=== PATIENT | female | born 1950 | race Caucasian/White ===

== ENCOUNTER 2016-08-14 20:34 | Emergency (ER) | payer MEDICARE ==
[~2016-08-14] VITALS: Ht 157.5 cm; Wt 50.0 kg
[~2016-08-14 20:34] MED LIST: ADVA500A INH; ALBU0.086 NEB; ALBU0.63 NEB; ALBU6.7H INH; AMIT25TA20 PO; ATOR10TA PO; BACT800T5 PO; CLON1 PO; DICY10 PO; LORT5TAB PO; OS-CTAB3 PO; OXYB5TAB33 PO; PRED10PA PO; PRED20 PO; PROT40TA PO; RANI150 PO; SPIRCAP INH; TAB-TAB PO
[2016-08-14 20:38] VITALS: BP 110/59; PULSE 134; RESP 18; TEMP 98.2; O2SAT 94
== END 2016-08-15 01:30 | disposition left against medical advice (07) ==
LOC: NED 20:34
DX: R06.02 Shortness of breath (principal); Z53.21 Procedure and treatment not carried out due to patient leaving prior to being seen by health care provider
CPT/HCPCS: 99281

== ENCOUNTER 2016-08-17 12:42 | Inpatient (IN) | payer MEDICARE ==
[~2016-08-17] VITALS: Ht 157.5 cm; Wt 50.6 kg
[2016-08-17] VITALS (7 sets, daily range): BP systolic 106–145; BP diastolic 55–86; PULSE 96–117; RESP 17–22; TEMP 97.4–98.6; O2SAT 92–94
[2016-08-17] MEDS ORDERED: CLON1TAB PO (13:12)
[2016-08-17] MEDS ORDERED: AMIT1TAB79 (13:12)
[2016-08-17] MEDS ORDERED: PRED10 PO (13:12)
[2016-08-17] MEDS ORDERED: [UNRECOGNIZED DRUG - CODE] CHEW (13:12)
[2016-08-17] MEDS ORDERED: ATOR10TA15 PO (13:12)
[2016-08-17] MEDS ORDERED: ALBU1.25 NEB (13:12)
[2016-08-17] MEDS ORDERED: ALBUAER3 INH (13:12)
[2016-08-17] MEDS ORDERED: SODIUM CHLOR 0.9% 1000 ML INJ 1,000 ML IV ONE ×2 (13:15→14:15)
[2016-08-17] MEDS ORDERED: methylPREDNISolone SOD SUCC 125 MG/2 ML VIAL IV PUSH ONE (13:15)
[2016-08-17] MEDS ORDERED: SODIUM CHLORIDE 0.9% FLUSH 5 ML FLUSH IVF PRN (13:15)
[2016-08-17] MEDS ORDERED: ZANT150T2 PO (13:19)
[2016-08-17] MEDS ORDERED: HYDR-3533 PO (13:19)
[2016-08-17] MEDS ORDERED: SPIRCAP INH (13:19)
[2016-08-17] MEDS ORDERED: DICY10 PO (13:19)
[2016-08-17] MEDS ORDERED: ADVA500A INH (13:19)
[2016-08-17] MEDS ORDERED: PANT20 PO (13:19)
[2016-08-17] MEDS ORDERED: OXYB5TAB10 PO (13:19)
--- NOTE | 2016-08-17 13:22 | PD ---
HPI Chief Complaint: Dizziness Time Seen by Provider: 13:00 Travel History International Travel<30 days: No Contact w/Intl Traveler<30days: No Traveled to known affect area: No History of Present Illness HPI This is a 66-year-old female who presents to the emergency department with a history of iron deficiency anemia and COPD who presents today with increasing lightheadedness and dizziness over the past several days feeling like she has no energy associated with shortness of breath and the pain in the right chest, worse with deep breaths, improved with rest. She says she's been feeling some chills. She is on chronic prednisone 10 mg per day. She is not on any home oxygen. She thinks she probably requires a blood transfusion and she's been trying to get outpatient labs but hasn't been able to get improved. PFSH Past Medical History Anemia: Yes Arthritis: No Asthma: No Atrial Fibrillation: Yes Autoimmune Disease: No Blood Disorders: No Anxiety: Yes Depression: Yes (SEVERE) Heart Rhythm Problems: No Cancer: No Cardiovascular Problems: Yes (HIGH CHOLESTEROL) High Cholesterol: Yes Chemotherapy: No Chest Pain: No Congestive Heart Failure: No COPD: Yes Cerebrovascular Accident: Yes (TIA) Coronary Artery Disease: Yes Diabetes: No Diminished Hearing: No Endocrine: Yes Gastrointestinal Disorders: Yes GERD: Yes Glaucoma: No Genitourinary: No Headaches: Yes Hepatitis: Yes Hiatal Hernia: No Hypertension: No Immune Disorder: No Implanted Vascular Access Dvce: Yes Kidney Stones: No Musculoskeletal: Yes (BACK AND SHOULDER PAIN) Neurologic: Yes Psychiatric: Yes Reproductive: No Respiratory: Yes Migraines: Yes Myocardial Infarction: No Radiation Therapy: No Renal Failure: No Seizures: No Sickle Cell Disease: No Sleep Apnea: No Thyroid Disease: Yes Ulcer: Yes PNEUMOCCOCAL Vaccine (Year): 2004 ?: Not Menopausal: Yes : 3 Para: 3 Ovarian Cysts: Yes Past Surgical History Abdominal Surgery: Yes (1975--APPENDECTOMY AND DERMOID TUMOR) AICD: No Appendectomy: Yes Arteriovenous Shunt: No Body Medical Devices: PLATE & SCREWS IN LEFT WRIST. Cardiac Surgery: No Cholecystectomy: No Ear Surgery: No Endocrine Surgery: Yes (PARTIAL THYROID 2006) Eye Surgery: No Genitourinary Surgery: No Gynecologic Surgery: Yes (OVARIAN TUMOR REMOVED) Insulin Pump: No Joint Replacement: No Oral Surgery: Yes (EDENTURELESS) Pacemaker: No Thoracic Surgery: No Other Surgery: Yes (PARTIAL THYROIDECTOMY) Social History Alcohol Use: No Tobacco Use: Yes (1PPD) Substance Use: No Allergies-Medications (Allergen,Severity, Reaction): Coded Allergies: Codeine (Verified Allergy, Severe, ITCHING, 08/17/16) Latex (Verified Allergy, Severe, CAUSES HER TO BREAK OUT, 08/17/16) Plavix (Verified Adverse Reaction, Unknown, 08/17/16) Reported Meds & Prescriptions Reported Meds & Active Scripts Active Reported Spiriva Handihaler (Tiotropium Inh) 18 Mcg Cap 18 Mcg INH DAILY 1 capsule = 18 mcg Zantac (Ranitidine HCl) 150 Mg Tab 150 Mg PO BID Protonix (Pantoprazole Sodium) 20 Mg Tab 20 Mg PO BID Ditropan (Oxybutynin Chloride) 5 Mg Tab 5 Mg PO Q12HR Lortab (Hydrocodone-Acetaminophen) 5-325 Mg Tab 1 Tab PO Q4H PRN Advair Diskus Inh (Fluticasone-Salmeterol Inh) 500-50 Mcg/Blist Aer 1 Puff INH BID Rinse mouth after use. Bentyl (Dicyclomine HCl) 10 Mg Cap 10 Mg PO BID Clonazepam 1 Mg Tab 1 Mg PO HS Prednisone 10 Mg Tab 10 Mg PO DAILY Calcium-Folic Acid Plus D (Calcium Carbonate-Folic Acid-Vitamin D3) 1,342-1-300 Mg-Mg-Unit Wafr 1 Tab CHEW BID Atorvastatin (Atorvastatin Calcium) 10 Mg Tab 10 Mg PO HS Elavil (Amitriptyline HCl) 25 Mg Tab Albuterol Neb (Albuterol Sulfate) 1.25 Mg/3 Ml Neb 1.25 Mg NEB Q6HR NEB PRN Proair Hfa 8.5 GM Inh (Albuterol Sulfate) 90 Mcg/Act Aer 2 Puff INH Q4-6H PRN 108 mcg/actuation Review of Systems Except as stated in HPI: all other systems reviewed are Neg Physical Exam Narrative GENERAL: Frail female in no acute distress SKIN: Warm and dry. HEAD: Atraumatic. Normocephalic. EYES: Pupils equal and round. No injection or drainage. Pale sclera. ENT: Moist mucous membranes. Angular cheilosis NECK: Trachea midline. CARDIOVASCULAR: Regular rate and rhythm. No murmur appreciated. RESPIRATORY: Poor air movement bilaterally, crackles in the right lower lung base. Tachypneic. GASTROINTESTINAL: Abdomen soft, non-tender, nondistended. MUSCULOSKELETAL: No obvious deformities. NEUROLOGICAL: Awake and alert. No obvious cranial nerve deficits. Moving all extremities. PSYCHIATRIC: Appropriate mood and affect; insight and judgment normal. Data Data Last Documented VS Vital Signs Date Time Temp Pulse Resp B/P Pulse Ox O2 Delivery O2 Flow Rate FiO2 08/17/16 13:40 17 94 Room Air 08/17/16 12:48 98.0 117 145/86 Orders Complete Blood Count With Diff (08/17/16 13:09) Comprehensive Metabolic Panel (08/17/16 13:09) Act Partial Throm Time (Ptt) (08/17/16 13:09) Prothrombin Time / Inr (Pt) (08/17/16 13:09) Troponin I (08/17/16 13:09) Influenzae A/B Antigen (08/17/16 13:09) Iv Access Insert/Monitor (08/17/16 13:09) Electrocardiogram (08/17/16 13:09) Ecg Monitoring (08/17/16 13:09) Oximetry (08/17/16 13:09) Oxygen Administration (08/17/16 13:09) Chest, Single Ap (08/17/16 13:09) Sodium Chloride 0.9% Flush (Ns Flush) (08/17/16 13:15) Type And Screen (08/17/16 13:09) Methylprednisolone So Succ Inj (Solumedr (08/17/16 13:15) Albuterol-Ipratropium Neb (Duoneb Neb) (08/17/16 13:15) Sodium Chlor 0.9% 1000 Ml Inj (Ns 1000 M (08/17/16 13:15) Blood Culture (08/17/16 14:12) Lactic Acid Sepsis Protocol (08/17/16 14:12) Sodium Chlor 0.9% 1000 Ml Inj (Ns 1000 M (08/17/16 14:15) Ceftriaxone Inj (Rocephin Inj) (08/17/16 14:15) Azithromycin Inj (Zithromax Inj) (08/17/16 14:15) Labs Laboratory Tests Test 08/17/16 13:30 White Blood Count 18.6 TH/MM3 Red Blood Count 5.16 MIL/MM3 Hemoglobin 10.3 GM/DL Hematocrit 33.0 % Mean Corpuscular Volume 63.9 FL Mean Corpuscular Hemoglobin 19.9 PG Mean Corpuscular Hemoglobin 31.1 % Concent Red Cell Distribution Width 19.3 % Platelet Count 290 TH/MM3 Mean Platelet Volume 7.2 FL Neutrophils (%) (Auto) 94.7 % Lymphocytes (%) (Auto) 0.9 % Monocytes (%) (Auto) 3.2 % Eosinophils (%) (Auto) 1.2 % Basophils (%) (Auto) 0.0 % Neutrophils # (Auto) 17.6 TH/MM3 Lymphocytes # (Auto) 0.2 TH/MM3 Monocytes # (Auto) 0.6 TH/MM3 Eosinophils # (Auto) 0.2 TH/MM3 Basophils # (Auto) 0.0 TH/MM3 CBC Comment AUTO DIFF Differential Comment AUTO DIFF CONFIRMED Target Cells 1+ Ovalocytes 1+ Acanthocytes 1+ Keratocytes OCC Prothrombin Time 10.4 SEC Prothromb Time International 0.9 RATIO Ratio Activated Partial 32.2 SEC Thromboplast Time Sodium Level 134 MEQ/L Potassium Level 3.5 MEQ/L Chloride Level 97 MEQ/L Carbon Dioxide Level 27.1 MEQ/L Anion Gap 10 MEQ/L Blood Urea Nitrogen 14 MG/DL Creatinine 0.73 MG/DL Estimat Glomerular Filtration 80 ML/MIN Rate Random Glucose 186 MG/DL Calcium Level 8.4 MG/DL Total Bilirubin 0.4 MG/DL Aspartate Amino Transf 6 U/L (AST/SGOT) Alanine Aminotransferase 16 U/L (ALT/SGPT) Alkaline Phosphatase 96 U/L Troponin I LESS THAN 0.02 NG/ML Total Protein 7.0 GM/DL Albumin 2.5 GM/DL [facility] Medical Decision Making Medical Screen Exam Complete: Yes Emergency Medical Condition: Yes Interpretation(s) Afebrile, tachycardic, hypertensive, hypoxic on room air Leukocytosis of 18 with 94% neutrophils Anemia with hemoglobin of 10 which is baseline Troponin is normal Chest x-ray: Consolidation in the right lower lung consistent with pneumonia Differential Diagnosis Pneumonia, COPD exacerbation, anemia, sepsis Narrative Course This is a 66-year-old female who presents to the emergency department with generalized weakness and increasing shortness of breath. She has a history of COPD and is on prednisone chronically. She was placed on a monitor and an IV was established. She was found to be hypoxic between 90-92% on room air. She has a white count of 18 which may be secondary to chronic prednisone use however on exam she appears quite labored and on x-ray she has evidence of a right lower lobe pneumonia. She was given a dose of IV antibiotics, bronchodilator treatments and methylprednisolone in the emergency room. I think she would benefit from admission for IV antibiotics, bronchodilator treatment and continued pulse steroids. Diagnosis Primary Impression: Pneumonia Qualified Code: J18.1 - Pneumonia of right lower lobe due to infectious organism Admitting Information Admitting Physician Requests: Admit Harika Clemons MD Aug 17, 2016 13:22
[2016-08-17] MEDS: RESP: ALBUTEROL 2.5 MG/IPRATROPIUM 0.5 MG NEB (SCH) INH ×3 (13:30→23:36)
--- NOTE | 2016-08-17 13:31 | RADHPO ---
EXAM DATE/TIME: 08/17/2016 13:19 [facility] COMPARISON: No previous studies available for comparison. INDICATIONS : Cough, congestion, and dizziness. MEDICAL HISTORY : Chronic obstructive pulmonary disease. SURGICAL HISTORY : None. ENCOUNTER: Initial ACUITY: 3 days PAIN SCORE: 3/10 LOCATION: Right lower chest FINDINGS: Portable AP view of the chest demonstrates a normal-sized cardiac silhouette. There is airspace conso lidation in the right lower lung zone. No pleural effusion or pneumothorax is identified. Bones and s oft tissues demonstrate no acute finding. CONCLUSION: Abnormal air space consolidation in the right lower lung zone. Given the history of cough this is camilla racteristic of an infectious process/pneumonia. Stiven Steve MD on August 17, 2016 at 13:28 Board Certified Radiologist. This report was verified electronically.
[2016-08-17 13:38] LABS: AUTOMATED NEUTROPHIL # 17.6 TH/MM3 (1.8-7.7); EOSINOPHIL # 0.2 TH/MM3 (0-0.4); EOSINOPHIL % 1.2 % (0.0-4.0); HEMO FLAGS AUTO DIFF; LYMPH % 0.9 % (9.0-44.0); LYMPHOCYTE # 0.2 TH/MM3 (1.0-4.8); MEAN CELL VOLUME 63.9 FL (80.0-100.0); MEAN CORPUSCULAR HEMOGLOBIN 19.9 PG (27.0-34.0); MEAN CORPUSCULAR HGB CONC 31.1 % (32.0-36.0); MONO % 3.2 % (0.0-8.0); NEUT % 94.7 % (16.0-70.0); PLATELET COUNT 290 TH/MM3 (150-450); RED BLOOD COUNT 5.16 MIL/MM3 (4.00-5.30); RED CELL DISTRIBUTION WIDTH 19.3 % (11.6-17.2); WHITE BLOOD COUNT 18.6 TH/MM3 (4.0-11.0)
[2016-08-17 13:46] LABS: CHLORIDE 97 MEQ/L (98-107); POTASSIUM 3.5 MEQ/L (3.5-5.1); SODIUM (NA) 134 MEQ/L (136-145)
[2016-08-17 13:50] LABS: ANION GAP 10 MEQ/L (5-15); BICARBONATE 27.1 MEQ/L (21.0-32.0); BLOOD UREA NITROGEN 14 MG/DL (7-18)
[2016-08-17 13:53] LABS: ALT (GPT) 16 U/L (10-53); APTT (PATIENT) 32.2 SEC (24.3-30.1); AST (GOT) 6 U/L (15-37); GLOMERULAR FILTRATION RATE 80 ML/MIN (>89); INTERNATIONAL NORMALIZED RATIO 0.9 RATIO; PROTHROMBIN TIME - PATIENT 10.4 SEC (9.8-11.6)
[2016-08-17 13:55] LABS: TOTAL BILIRUBIN ADULT 0.4 MG/DL (0.2-1.0)
[2016-08-17 13:56] LABS: ALKALINE PHOSPHATASE 96 U/L (45-117)
[2016-08-17 14:02] LABS: ACANTHOCYTES 1+ (NORMAL); KERATOCYTES OCC (NORMAL); OVALOCYTES 1+ (NORMAL); SCAN/DIFF AUTO DIFF CONFIRMED; TARGET CELLS 1+ (NORMAL)
[2016-08-17] MEDS ORDERED: AZITHROMYCIN INJ 500 MG in SODIUM CHLOR 0.9% 250 ML INJ 250 ML IV ONE (14:15)
[2016-08-17] MEDS ORDERED: cefTRIAXone INJ 1,000 MG in SODIUM CHLORIDE 0.9% INJ 100 ML IV ONE (14:15)
[2016-08-17] MEDS ORDERED: NICOTINE 21 MG/24 HR PATCH TD SCH (15:00)
[2016-08-17] MEDS ORDERED: ACETAMINOPHEN/HYDROcodone 325 MG/5 MG TAB PO PRN (15:30)
[2016-08-17] MEDS: SODIUM CHLOR 0.9% 1000 ML INJ 1,000 ML IV SCH ×2 (15:41→18:26)
[2016-08-17] MEDS: methylPREDNISolone SOD SUCC 125 MG/2 ML VIAL IVP SCH ×2 (15:41→20:49)
[2016-08-17 15:50] LABS: BLOOD, URINE SMALL (NEG); GLUCOSE,URINE 1000 OR GREATER mg/dL (NEG); KETONE, URINE TRACE mg/dL (NEG); METHOD OF COLLECTION CLEAN CATCH; NITRITE,URINE NEG (NEG); URINE COLOR YELLOW (YELLW/STRAW)
[2016-08-17 15:51] LABS: BACTERIA, URINE FEW /hpf; SQUAMOUS EPITHELIAL CELL URINE > 8 /hpf (0-5)
[2016-08-17 15:52] LABS: COMMENT (UR) CULT NOT INDICATED; CULTURE IF INDICATED CULT NOT INDICATED
--- NOTE | 2016-08-17 17:02 | MH ---
cc: THAIS PACE DATE OF ADMISSION: 08/17/2016 ADMITTING DIAGNOSIS: COPD exacerbation. HISTORY OF PRESENT ILLNESS: Ms. Smith is a 66-year-old female who presented to the emergency room for increased shortness of breath, cough and lightheadedness. She states that she has COPD and on Friday she finished her course of prednisone and doxycycline for COPD exacerbation that she has as part of the [facility] COPD Management Program. She said even though she finished this, she still was not feeling anywhere near improved so she came to the emergency room. Apparently on she also developed some low back pain for which she went to the emergency room at [facility] and states she sat in a chair for three hours after which she left without being seen. Apparently for the last several months she says she has been having these flare-ups of the COPD approximately every two months. She is needing to use the extra Prednisone and antibiotics the doxycycline she is normally on 10 milligrams of Prednisone on a daily basis. She tells me she is not currently on oxygen but has been on oxygen. It would appear that she herself discontinued it as she states that she does not need it. When she is doing well, she is active and she walks the beach without any problem or shortness of breath. She tells me that she has sick contacts at home, notably her daughter. She has had a decreased appetite. Apparently she has been having decreased appetite for the last year and has actually lost weight. She was also concerned because she noticed that her urine was very dark in the last day or so. She denies any chest pain or palpitations. She is a smoker but tells me that she actually has been off cigarettes for 52 days. She has been on Chantix and feels that she has been doing well with that. She has smoked approximately a pack a day for at least 40 years. She denies any fever. She did say that she did feel like she had chills when she came into the emergency room. PAST MEDICAL HISTORY: Her past medical history is significant for: 1. Reflux. 2. Apparently she has had an ulcer in the past. 3. She has had problems with thrush. 4. She does have a history of anemia and has been seeing a carpenter assembler for this. 5. She did have a TIA in the past but apparently is not on aspirin or any medication of this nature because of her gastrointestinal issues. 6. She have a problem with headaches and migraines. 7. Low back pain. 8. She also has a history of depression. PAST SURGICAL HISTORY: Her past surgical history includes: 1. Removal of a dermoid tumor. 2. She has had an ovarian tumor removed. 3. She has had surgery on her left wrist. 4. Prior history of thyroid surgery with partial thyroidectomy. ALLERGIES: 1. CODEINE. 2. LATEX. 3. PLAVIX. MEDICATIONS: Medications that she takes at home include: 1. Prednisone 10 milligrams daily. 2. Elavil 20 milligrams at bedtime. 3. Ditropan 5 milligrams twice a day. 4. Bentyl 10 milligrams twice a day. 5. She uses Spiriva. 6. Clonazepam 1 milligram at bedtime. 7. She has albuterol inhaler as well as nebulizer. 8. She has the Advair Diskus she is on 550. 9. She is on Atorvastatin 10 milligrams daily. 10. Ranitidine. 11. Pantoprazole. 12. She does use hydrocodone for her chronic back pain. 13. She is also on calcium and vitamin D3. HABITS: She does not consume alcohol. She smoked for over 40 years. She is currently on the Chantix and proudly tells me she has been 52 days without smoking. SOCIAL HISTORY: She is on disability. She is . She has a family who lives locally. 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 REVIEW OF SYSTEMS: On review of systems see the history of present illness. She does say she has a very, very dry mouth and She does say she has a very, very dry mouth and has problems with that as well as with thrush. She does say that she does have intermittent heartburn but she denies any kind of chest pain or palpitations. Currently no abdominal pain. No constipation or diarrhea. She does state that she has decreased appetite. She denies any swelling in her legs or difficulty voiding. FAMILY HISTORY: Noncontributory. PHYSICAL EXAMINATION: VITAL SIGNS: Temperature is 98, heart rate is 117, respiratory rate is 20, blood pressure is 145/86, pulse ox is 92% on room air. GENERAL: This is a very pleasant female lying on the emergency room cot. She is not wearing oxygen. She has actually very talkative and speaking in full sentences. HEAD, EYES, EARS, NOSE, THROAT: She is normocephalic and traumatic. Extraocular muscles intact. She does have some __ on the edge of her lips. Saliva is a little bit thick. NECK: Her neck is supple. LUNGS: She does have a diffuse wheeze throughout. HEART: Her heart is little bit tachycardiac but regular. ABDOMEN: Her abdomen has good bowel sounds in all four quadrants. No rebound or guarding. EXTREMITIES: She does have some clubbing of her fingernails. LABORATORY DATA: Her lab work that was done when she came in showed a white count of 18.6, hemoglobin of 10.3, hematocrit of 33, platelet count of 290,000, neutrophils of 94.7. Sodium was 134, potassium was 4.5, BUN was 14, creatinine was 0.7, GFR was 80 with a random glucose of 186, lactic acid was 2. Liver function tests were normal. Troponin was less than 0.02. Total protein was 7 with an albumin of 2.5. PT was 10.4, INR was 9, PTT was 32.2. IMAGING STUDIES: Chest x-ray showed abnormal air space consolidation in the right lower lung zone. This was felt to possibly be an infectious process or pneumonia. ASSESSMENT AND PLAN: 66-year-old female with history of severe COPD presenting to the emergency room with failed outpatient treatment of COPD. At this time she has been admitted. She has been started on IV antibiotics. Will go ahead and give her IV Solu-Medrol, continue breathing treatments around the clock. I actually tried to get ABGs from her but she refused. Give her supplemental oxygen as needed. In terms of her anxiety, will continue her medications. She does have a history of anemia. Her hemoglobin at this point shows no indication that she needs to be transfused. For her chronic pain and low back pain, will continue her pain medications. Continue her atorvastatin for her hyperlipidemia. I will run a urinalysis on her urine since she has complained of the dark urine. I did forget to add that when I did the physical exam she was tender to palpation on the right thorax posteriorly. Further recommendations as the case develops. Thais Pace MD CSL/JCC /3:36 PM /4:34 PM
[2016-08-17] MEDS: BUDESONIDE-FORMOTEROL 160/4.5 MCG INHALER INH SCH (20:47)
[2016-08-17] MEDS: clonazePAM 1 MG TAB PO SCH (20:48)
[2016-08-17] MEDS: FAMOTIDINE 20 MG TAB PO SCH (20:48)
[2016-08-17] MEDS: DICYCLOMINE HCL 10 MG CAP PO SCH (20:48)
[2016-08-17] MEDS: SODIUM CHLORIDE 0.9% FLUSH 5 ML FLUSH IVF SCH (20:48)
[2016-08-17] MEDS: VARENICLINE 1 MG TAB PO SCH (20:49)
[2016-08-17] MEDS: ATORVASTATIN 10 MG TAB PO SCH (20:49)
[2016-08-17] MEDS: PANTOPRAZOLE SOD 20 MG DELAYED RELEASE TAB PO SCH (20:49)
[2016-08-17] MEDS: OXYBUTYNIN CHLORIDE 5 MG TAB PO SCH (20:49)
[2016-08-18] VITALS (7 sets, daily range): BP systolic 111–125; BP diastolic 65–78; PULSE 84–100; RESP 16–20; TEMP 97.1–98.5; O2SAT 93–96
[2016-08-18] MEDS: RESP: ALBUTEROL 2.5 MG/IPRATROPIUM 0.5 MG NEB (SCH) INH ×5 (03:04→19:21)
[2016-08-18] MEDS: methylPREDNISolone SOD SUCC 125 MG/2 ML VIAL IVP SCH ×4 (04:12→20:11)
[2016-08-18] MEDS: SODIUM CHLOR 0.9% 1000 ML INJ 1,000 ML IV SCH (04:12)
[2016-08-18 07:12] LABS: AUTOMATED NEUTROPHIL # 5.5 TH/MM3 (1.8-7.7); BASOPHIL % 0.1 % (0.0-2.0); EOSINOPHIL % 0.2 % (0.0-4.0); HEMATOCRIT 27.2 % (35.0-46.0); LYMPH % 3.7 % (9.0-44.0); LYMPHOCYTE # 0.2 TH/MM3 (1.0-4.8); MEAN CORPUSCULAR HEMOGLOBIN 19.7 PG (27.0-34.0); MEAN CORPUSCULAR HGB CONC 30.3 % (32.0-36.0); MONO % 2.1 % (0.0-8.0); NEUT % 93.9 % (16.0-70.0); PLATELET COUNT 226 TH/MM3 (150-450); RED BLOOD COUNT 4.19 MIL/MM3 (4.00-5.30); RED CELL DISTRIBUTION WIDTH 19.8 % (11.6-17.2); WHITE BLOOD COUNT 5.8 TH/MM3 (4.0-11.0)
[2016-08-18 07:14] LABS: HEMO FLAGS AUTO DIFF
[2016-08-18 07:32] LABS: BICARBONATE 28.8 MEQ/L (21.0-32.0); POTASSIUM 3.2 MEQ/L (3.5-5.1)
[2016-08-18 07:43] LABS: KERATOCYTES 1+ (NORMAL); OVALOCYTES 2+ (NORMAL); SCAN/DIFF AUTO DIFF CONFIRMED; TARGET CELLS 1+ (NORMAL)
[2016-08-18] MEDS: DICYCLOMINE HCL 10 MG CAP PO SCH ×2 (08:01→20:12)
[2016-08-18] MEDS: FAMOTIDINE 20 MG TAB PO SCH ×2 (08:01→20:13)
[2016-08-18] MEDS: OXYBUTYNIN CHLORIDE 5 MG TAB PO SCH ×2 (08:01→20:12)
[2016-08-18] MEDS: PANTOPRAZOLE SOD 20 MG DELAYED RELEASE TAB PO SCH ×2 (08:01→20:12)
[2016-08-18] MEDS: SODIUM CHLORIDE 0.9% FLUSH 5 ML FLUSH IVF SCH ×2 (08:02→20:10)
[2016-08-18] MEDS: BUDESONIDE-FORMOTEROL 160/4.5 MCG INHALER INH SCH ×2 (08:02→20:10)
[2016-08-18] MEDS: VARENICLINE 1 MG TAB PO SCH ×2 (08:49→20:12)
[2016-08-18] MEDS ORDERED: REMOVE OLD PATCH TD SCH (09:00)
[2016-08-18] MEDS ORDERED: ACETAMINOPHEN/HYDROcodone 325 MG/10 MG TAB PO PRN (13:00)
[2016-08-18] MEDS ORDERED: GLUCAGON 1 MG/ML VIAL OTHER PRN (14:00)
[2016-08-18] MEDS ORDERED: ACETAMIN 325 MG/BUTALBITAL 50 MG/CAFFEINE 40 MG TAB PO PRN (14:00)
[2016-08-18] MEDS ORDERED: DEXTROSE 50% IN WATER 50 ML VIAL(D50) IV PUSH PRN (14:00)
--- NOTE | 2016-08-18 14:23 | HHI.PR ---
Subjective Remarks Feels better then yesterday, wants to walk in the [place]. Less cough. Mouth is bothering her, vaginal itching was using monistat before coming to the ER. Did not lry nurse put raisa hose on her. Objective Vitals Vital Signs Date Time Temp Pulse Resp B/P Pulse Ox O2 Delivery O2 Flow Rate FiO2 08/18/16 12:00 97.4 86 19 115/78 96 08/18/16 09:01 20 08/18/16 08:00 97.7 84 17 111/73 95 08/18/16 08:00 93 Nasal Cannula 2.00 08/18/16 07:31 94 Nasal Cannula 2.00 08/18/16 04:00 08/18/16 00:24 97.1 85 20 115/65 96 08/17/16 21:21 98.6 107 22 114/73 93 08/17/16 20:00 93 Nasal Cannula 2.00 08/17/16 19:35 93 Nasal Cannula 2.00 08/17/16 16:30 97.4 96 20 111/70 94 08/17/16 15:32 99 17 109/61 92 Room Air 08/17/16 14:17 102 18 106/55 94 Room Air 08/17/16 08/17/16 08/18/16 15:00 23:00 07:00 Intake Total 307 ml 827 ml Output Total 150 ml Balance 157 ml 827 ml IV Total 307 ml 827 ml Output Urine Total 150 ml # Voids 3 Result Diagram: 08/18/16 0620 08/18/16 0620 Imaging Last Impressions Chest X-Ray 08/17/16 1309 Signed Impressions: Service Date/Time: Wednesday, August 17, 2016 13:19 - CONCLUSION: Abnormal air space consolidation in the right lower lung zone. Given the history of cough this is characteristic of an infectious process/pneumonia. Stiven Steve MD Objective Remarks Lying in bed no acute distress some plaques speaking in full sentences Ronchi rt base, wheezing , left lung clearer +bs non tender No edema A/P Problem List: (1) Pneumonia Status: Acute Plan: currently on rocephin, azithromycin per pt report feeling better, less sputum (2) Steroid-dependent COPD Status: Chronic Plan: on 10 mg prednisone daily, will cont on iv solumedrol for now had glucosuria in her urine and glucose up in labs, check ,hgba1c and ssi for now (3) Anxiety Status: Chronic Plan: cont home medications (4) Anemia Status: Chronic Plan: cont to monitor, has been undergoing evaluation by hematology per patient (5) Chronic back pain Status: Chronic Plan: cont lortab 5, comfortable with this dose (6) Nicotine dependence Status: Chronic Plan: continues on chantix and per report has not smoked in over 50 days (7) Thrush Status: Acute Plan: recurrent problem for her will treat with nystatin and diflucan Problem Qualifiers (1) Pneumonia: Qualified Code: J18.1 - Pneumonia of right lower lobe due to infectious organism Thais Castellanos MD Aug 18, 2016 14:22
[2016-08-18 14:25] LABS: MAGNESIUM 2.1 MG/DL (1.5-2.5)
[2016-08-18] MEDS: cefTRIAXone INJ 1,000 MG in SODIUM CHLORIDE 0.9% INJ 100 ML IV SCH (14:34)
--- NOTE | 2016-08-18 14:36 | EKG ---
Date Performed: 08/17/2016 Time Performed: 13:23:10 PTAGE: 66 years EKG: Sinus rhythm rSr'(V1) - probable normal variant Anterior T wave changes are nonspecific Compared to prior tracing no significant change Borderline ECG PREVIOUS TRACING : 03/03/2011 @ 19.37.06 DOCTOR: Thierry Gaitan Interpretating Date/Time 08/18/2016 14:35:15
[2016-08-18] MEDS ORDERED: PILL SPLITTER OTHER PRN (14:45)
[2016-08-18] MEDS: POTASSIUM CHLORIDE 20 MEQ CONTROLLED RELEASE TAB PO SCH ×2 (14:55→20:12)
[2016-08-18] MEDS: NS + KCL 20 MEQ INJ 1,000 ML IV SCH (14:56)
[2016-08-18] MEDS: INSULIN ASPART SUPPLEMENTAL SCALE SQ SCH ×2 (16:00→20:18)
[2016-08-18] MEDS: FLUCONAZOLE 100 MG TAB PO SCH (16:29)
[2016-08-18] MEDS: NYSTATIN SUSP 500,000 U/5 ML CUP SWISH-SWAL SCH ×2 (16:29→20:12)
[2016-08-18] MEDS: ATORVASTATIN 10 MG TAB PO SCH (20:12)
[2016-08-18] MEDS: clonazePAM 1 MG TAB PO SCH (20:12)
[2016-08-18] MEDS: ACETAMINOPHEN/HYDROcodone 325 MG/5 MG TAB PO PRN (20:21)
[2016-08-18 21:10] LABS: MEAN CORPUSCULAR HGB CONC 29.5 % (32.0-36.0)
[2016-08-18] MEDS: RESP: ALBUTEROL 2.5 MG/3 ML NEB (PRN) INH (22:55)
[2016-08-19] VITALS (7 sets, daily range): BP systolic 112–134; BP diastolic 52–82; PULSE 70–115; RESP 16–20; TEMP 97.2–98.6; O2SAT 91–96
[2016-08-19] MEDS: methylPREDNISolone SOD SUCC 125 MG/2 ML VIAL IVP SCH ×2 (03:19→08:35)
[2016-08-19] MEDS: NS + KCL 20 MEQ INJ 1,000 ML IV SCH (03:19)
[2016-08-19] MEDS: INSULIN ASPART SUPPLEMENTAL SCALE SQ SCH ×4 (05:47→20:10)
[2016-08-19] MEDS: ACETAMINOPHEN/HYDROcodone 325 MG/5 MG TAB PO PRN ×2 (06:21→17:24)
[2016-08-19 06:54] LABS: AUTOMATED NEUTROPHIL # 10.4 TH/MM3 (1.8-7.7); EOSINOPHIL % 0.1 % (0.0-4.0); HEMATOCRIT 27.9 % (35.0-46.0); LYMPH % 3.3 % (9.0-44.0); LYMPHOCYTE # 0.4 TH/MM3 (1.0-4.8); MEAN CELL VOLUME 64.5 FL (80.0-100.0); MONO % 2.9 % (0.0-8.0); NEUT % 93.7 % (16.0-70.0); PLATELET COUNT 261 TH/MM3 (150-450); RED BLOOD COUNT 4.33 MIL/MM3 (4.00-5.30); RED CELL DISTRIBUTION WIDTH 20.2 % (11.6-17.2); WHITE BLOOD COUNT 11.1 TH/MM3 (4.0-11.0)
[2016-08-19 07:16] LABS: ALKALINE PHOSPHATASE 70 U/L (45-117); ALT (GPT) 16 U/L (10-53); ANION GAP 7 MEQ/L (5-15); AST (GOT) 10 U/L (15-37); BICARBONATE 30.5 MEQ/L (21.0-32.0); BLOOD UREA NITROGEN 8 MG/DL (7-18); CHLORIDE 107 MEQ/L (98-107); GLOMERULAR FILTRATION RATE 137 ML/MIN (>89); POTASSIUM 4.2 MEQ/L (3.5-5.1); SODIUM (NA) 144 MEQ/L (136-145); TOTAL BILIRUBIN ADULT 0.2 MG/DL (0.2-1.0)
[2016-08-19 07:29] LABS: HEMO FLAGS AUTO DIFF
[2016-08-19 07:31] LABS: KERATOCYTES 1+ (NORMAL); OVALOCYTES 2+ (NORMAL); TARGET CELLS 1+ (NORMAL)
[2016-08-19 07:32] LABS: SCAN/DIFF AUTO DIFF CONFIRMED
[2016-08-19] MEDS: RESP: ALBUTEROL 2.5 MG/IPRATROPIUM 0.5 MG NEB (SCH) INH ×4 (07:35→19:01)
[2016-08-19] MEDS: POTASSIUM CHLORIDE 20 MEQ CONTROLLED RELEASE TAB PO SCH (08:32)
[2016-08-19] MEDS: BUDESONIDE-FORMOTEROL 160/4.5 MCG INHALER INH SCH ×2 (08:32→20:11)
[2016-08-19] MEDS: DICYCLOMINE HCL 10 MG CAP PO SCH ×2 (08:32→20:10)
[2016-08-19] MEDS: AZITHROMYCIN 250 MG TAB PO SCH (08:33)
[2016-08-19] MEDS: PANTOPRAZOLE SOD 20 MG DELAYED RELEASE TAB PO SCH ×2 (08:33→20:09)
[2016-08-19] MEDS: FAMOTIDINE 20 MG TAB PO SCH ×2 (08:33→20:10)
[2016-08-19] MEDS: VARENICLINE 1 MG TAB PO SCH ×2 (08:33→20:17)
[2016-08-19] MEDS: OXYBUTYNIN CHLORIDE 5 MG TAB PO SCH ×2 (08:33→20:09)
[2016-08-19] MEDS: NYSTATIN SUSP 500,000 U/5 ML CUP SWISH-SWAL SCH ×4 (08:34→20:10)
[2016-08-19] MEDS: SODIUM CHLORIDE 0.9% FLUSH 5 ML FLUSH IVF SCH ×2 (08:35→20:10)
[2016-08-19 08:59] LABS: HEMOGLOBIN A1a 1.6 %; HEMOGLOBIN A1b 2.1 %; HEMOGLOBIN Ao 83.1 %; HEMOGLOBIN LA1C 1.9 %; HEMOGLOBIN P3 4.2 %
--- NOTE | 2016-08-19 11:15 | HHI.PR ---
Subjective Remarks Sob today, walked the [place] yesterday, took of her oxygen on her own. Long story about how she has had iron infusions and transfusions in [place]. Unable to take iron replacement.Saw hematology here but unable to get blood work ordered by Dr Tarango. Pain on rt side resolved, less itch and whitish discharge Objective Vitals Vital Signs Date Time Temp Pulse Resp B/P Pulse Ox O2 Delivery O2 Flow Rate FiO2 08/19/16 09:00 Nasal Cannula 2.00 08/19/16 08:00 97.2 115 18 119/71 91 08/19/16 07:35 94 2.00 08/19/16 00:00 98.6 70 16 112/52 95 08/18/16 21:02 98.5 86 16 119/68 94 08/18/16 20:20 94 Nasal Cannula 2.00 08/18/16 19:20 95 Nasal Cannula 2.00 08/18/16 16:00 98.1 100 17 125/71 93 08/18/16 12:00 97.4 86 19 115/78 96 08/18/16 08/18/16 08/19/16 15:00 23:00 07:00 Intake Total 560 ml 1539 ml 769 ml Balance 560 ml 1539 ml 769 ml Intake Oral 560 ml IV Total 1539 ml 769 ml # Voids 3 1 # Bowel Movements 0 Result Diagram: 08/19/16 0545 08/19/16 0545 Imaging Last Impressions Chest X-Ray 08/17/16 1309 Signed Impressions: Service Date/Time: Wednesday, August 17, 2016 13:19 - CONCLUSION: Abnormal air space consolidation in the right lower lung zone. Given the history of cough this is characteristic of an infectious process/pneumonia. Stiven Steve MD Objective Remarks Lying in bed no acute distress speaking in full sentences Ronchi rt base, lungs otherwise clear +bs non tender No edema, wearing teds A/P Problem List: (1) Pneumonia Status: Acute Plan: currently on rocephin, azithromycin per pt report more sob today very little sputum , will recheck xray (2) Steroid-dependent COPD Status: Chronic Plan: on 10 mg prednisone daily, will cont on iv solumedrol for now had glucosuria in her urine and glucose up in labs, check ,hgba1c and ssi for now, monitor sugars as seroids tapered (3) Anxiety Status: Chronic Plan: cont home medications (4) Anemia Status: Chronic Plan: cont to monitor, has been undergoing evaluation by hematology per patient , however sounds like her blood work was never followed through due to miscommunication , anemia may certainly be contributing to her sob, will ask hematology to see (5) Chronic back pain Status: Chronic Plan: cont lortab 5, comfortable with this dose (6) Nicotine dependence Status: Chronic Plan: continues on chantix and per report has not smoked in over 50 days (7) Thrush Status: Acute Plan: recurrent problem for her will treat with nystatin and diflucan Problem Qualifiers (1) Pneumonia: Qualified Code: J18.1 - Pneumonia of right lower lobe due to infectious organism Thais Castellanos MD Aug 19, 2016 11:15
[2016-08-19] MEDS: methylPREDNISolone SOD SUCC 40 MG/1 ML VIAL IV SCH ×2 (14:16→21:32)
[2016-08-19] MEDS: FLUCONAZOLE 100 MG TAB PO SCH (14:17)
[2016-08-19] MEDS: cefTRIAXone INJ 1,000 MG in SODIUM CHLORIDE 0.9% INJ 100 ML IV SCH (14:18)
--- NOTE | 2016-08-19 14:36 | RADHPO ---
EXAM DATE/TIME: 08/19/2016 12:38 [facility] COMPARISON: CHEST SINGLE AP, August 17, 2016, 13:19. INDICATIONS: Shortness of breath, cough, and generalized weakness. MEDICAL HISTORY: Emphysema. Chronic obstructive pulmonary disease. Anemia. SURGICAL HISTORY: None. ENCOUNTER: Initial ACUITY: 1 week PAIN SCORE: 0/10 LOCATION: Bilateral chest FINDINGS: The study is abnormal. Moderate emphysematous changes are present with patchy air space disease late rally in the right lung. The left lung is clear. Heart and pulmonary vascularity are normal. CONCLUSION: Patchy air space disease in the right lung. Serial films of resolution are suggested. Marcus Baird MD FACR on August 19, 2016 at 14:30 Board Certified Radiologist. This report was verified electronically.
[2016-08-19] MEDS ORDERED: IRON SUCROSE INJ 200 MG in SODIUM CHLORIDE 0.9% INJ 100 ML IV ONE (17:00)
[2016-08-19] MEDS: ATORVASTATIN 10 MG TAB PO SCH (20:09)
[2016-08-19] MEDS: SODIUM CHLORIDE 0.9% FLUSH 5 ML FLUSH IVF PRN (21:32)
[2016-08-19] MEDS: clonazePAM 1 MG TAB PO SCH (21:33)
[2016-08-19] MEDS: RESP: ALBUTEROL 2.5 MG/3 ML NEB (PRN) INH (23:33)
[2016-08-20] VITALS (7 sets, daily range): BP systolic 118–152; BP diastolic 70–92; PULSE 80–93; RESP 18–20; TEMP 95.9–97.8; O2SAT 92–96
[2016-08-20 01:55] LABS: LDH SERUM 236 U/L (84-246)
[2016-08-20 01:56] LABS: FERRITIN 45 NG/ML (8-252); TRANSFERRIN IRON PROFILE 227 MG/DL (200-360)
[2016-08-20] MEDS: methylPREDNISolone SOD SUCC 40 MG/1 ML VIAL IV SCH (05:22)
[2016-08-20] MEDS: SODIUM CHLORIDE 0.9% FLUSH 5 ML FLUSH IVF PRN (05:22)
[2016-08-20] MEDS: RESP: ALBUTEROL 2.5 MG/3 ML NEB (PRN) INH ×2 (05:43→11:36)
[2016-08-20] MEDS: INSULIN ASPART SUPPLEMENTAL SCALE SQ SCH ×4 (05:54→20:00)
[2016-08-20] MEDS: ACETAMINOPHEN/HYDROcodone 325 MG/5 MG TAB PO PRN ×4 (05:54→22:25)
[2016-08-20 06:57] LABS: BASOPHIL % 0.1 % (0.0-2.0); HEMATOCRIT 29.7 % (35.0-46.0); LYMPH % 5.9 % (9.0-44.0); LYMPHOCYTE # 0.7 TH/MM3 (1.0-4.8); MEAN CELL VOLUME 63.7 FL (80.0-100.0); MEAN CORPUSCULAR HEMOGLOBIN 19.4 PG (27.0-34.0); MEAN CORPUSCULAR HGB CONC 30.4 % (32.0-36.0); MONO % 5.7 % (0.0-8.0); NEUT % 88.3 % (16.0-70.0); PLATELET COUNT 326 TH/MM3 (150-450); RED BLOOD COUNT 4.66 MIL/MM3 (4.00-5.30); RED CELL DISTRIBUTION WIDTH 20.4 % (11.6-17.2); WHITE BLOOD COUNT 11.4 TH/MM3 (4.0-11.0)
[2016-08-20 06:58] LABS: HEMO FLAGS AUTO DIFF; POTASSIUM 3.7 MEQ/L (3.5-5.1)
[2016-08-20 07:05] LABS: BICARBONATE 34.2 MEQ/L (21.0-32.0)
[2016-08-20] MEDS: RESP: ALBUTEROL 2.5 MG/IPRATROPIUM 0.5 MG NEB (SCH) INH ×3 (07:30→19:10)
[2016-08-20 07:53] LABS: OVALOCYTES 1+ (NORMAL); SCAN/DIFF AUTO DIFF CONFIRMED
[2016-08-20] MEDS: OXYBUTYNIN CHLORIDE 5 MG TAB PO SCH ×2 (08:26→20:52)
[2016-08-20] MEDS: DICYCLOMINE HCL 10 MG CAP PO SCH ×2 (08:26→20:52)
[2016-08-20] MEDS: AZITHROMYCIN 250 MG TAB PO SCH (08:26)
[2016-08-20] MEDS: BUDESONIDE-FORMOTEROL 160/4.5 MCG INHALER INH SCH ×2 (08:26→20:51)
[2016-08-20] MEDS: VARENICLINE 1 MG TAB PO SCH ×2 (08:26→20:52)
[2016-08-20] MEDS: PANTOPRAZOLE SOD 20 MG DELAYED RELEASE TAB PO SCH ×2 (08:26→20:52)
[2016-08-20] MEDS: FAMOTIDINE 20 MG TAB PO SCH ×2 (08:26→20:52)
[2016-08-20] MEDS: NYSTATIN SUSP 500,000 U/5 ML CUP SWISH-SWAL SCH ×4 (08:27→20:52)
[2016-08-20] MEDS: SODIUM CHLORIDE 0.9% FLUSH 5 ML FLUSH IVF SCH ×2 (08:27→20:51)
[2016-08-20 09:13] LABS: TOTAL PROTEIN SPE 6.6 GM/DL (6.0-7.6)
--- NOTE | 2016-08-20 11:01 | HHI.PR ---
Subjective Remarks low back pain bothering her today, ambulating in [place] with oxygen, was walking 2.6 miles 3 times a week before she got sick, feels stronger today mouth bothering her less Objective Vitals Vital Signs Date Time Temp Pulse Resp B/P Pulse Ox O2 Delivery O2 Flow Rate FiO2 08/20/16 08:00 96.9 91 20 120/79 93 08/20/16 07:30 93 Nasal Cannula 2.00 08/20/16 07:00 Nasal Cannula 2.00 08/20/16 00:00 97.8 88 20 152/92 92 08/19/16 20:00 98.1 99 20 134/82 93 08/19/16 20:00 Nasal Cannula 2.00 08/19/16 19:02 96 Nasal Cannula 2.00 08/19/16 16:00 98.2 90 18 118/70 92 08/19/16 12:00 98.2 90 18 120/70 94 08/19/16 08/19/16 08/20/16 15:00 23:00 07:00 Intake Total 1465 ml 240 ml Output Total 1 ml Balance 1464 ml 240 ml Intake Oral 1320 ml 240 ml IV Total 145 ml 0 ml Stool Total 1 ml # Voids 7 4 # Bowel Movements 1 0 Result Diagram: 08/20/16 0535 08/20/16 0535 Imaging Last Impressions Chest X-Ray 08/19/16 0000 Signed Impressions: Service Date/Time: Friday, August 19, 2016 12:38 - CONCLUSION: Patchy air space disease in the right lung. Serial films of resolution are suggested. Marcus Baird MD FACR Last Impressions Chest X-Ray 08/17/16 1309 Signed Impressions: Service Date/Time: Wednesday, August 17, 2016 13:19 - CONCLUSION: Abnormal air space consolidation in the right lower lung zone. Given the history of cough this is characteristic of an infectious process/pneumonia. Stiven Steve MD Objective Remarks Lying in bed speaking in full sentences wearing oxygen Ronchi rt base, lungs otherwise clear +bs non tender No edema, wearing teds A/P Problem List: (1) Pneumonia Status: Acute Plan: currently on rocephin, azithromycin some sputum , xray still with infiltrate but clinically appears better today (2) Steroid-dependent COPD Status: Chronic Plan: on 10 mg prednisone daily, will cont on iv solumedrol for now had glucosuria in her urine and glucose up in labs, on ssi sugars decreasing as prednisone is tapered (3) Anxiety Status: Chronic Plan: cont home medications, stable (4) Anemia Status: Chronic Plan: cont to monitor, has been undergoing evaluation by hematology per patient , however sounds like her blood work was never followed through due to miscommunication, anemia may certainly be contributing to her sob seen by hematology and labs done, received iv iron infusion (5) Chronic back pain Status: Chronic Plan: cont lortab 5, comfortable with this dose (6) Nicotine dependence Status: Chronic Plan: continues on chantix and per report has not smoked in over 50 days (7) Thrush Status: Acute Plan: recurrent problem for her will treat with nystatin and diflucan Discharge Planning next day or so will likely go home on oxygen Problem Qualifiers (1) Pneumonia: Qualified Code: J18.1 - Pneumonia of right lower lobe due to infectious organism Thais Castellanos MD Aug 20, 2016 11:01
[2016-08-20 12:00] LABS: ALBUMIN SPE 3.52 GM/DL (3.50-5.00); ALPHA 1 GLOBULIN 0.48 GM/DL (0.11-0.29); ALPHA 2 GLOBULIN 1.08 GM/DL (0.22-1.00); BETA GLOBULINS (SPE) 0.83 GM/DL (0.53-1.03)
[2016-08-20] MEDS: cefTRIAXone INJ 1,000 MG in SODIUM CHLORIDE 0.9% INJ 100 ML IV SCH (14:58)
[2016-08-20] MEDS: FLUCONAZOLE 100 MG TAB PO SCH (16:26)
[2016-08-20] MEDS: ATORVASTATIN 10 MG TAB PO SCH (20:52)
[2016-08-20] MEDS: clonazePAM 1 MG TAB PO SCH (20:52)
[2016-08-20] MEDS: predniSONE 20 MG TAB PO SCH (20:52)
[2016-08-20 21:10] LABS: MEAN CORPUSCULAR HGB CONC 29.2 % (32.0-36.0)
[2016-08-21] VITALS: BP 125/72; PULSE 76; RESP 18; TEMP 96.8; O2SAT 98
[2016-08-21 05:38] VITALS: BP 164/77; PULSE 70; RESP 18; O2SAT 100
[2016-08-21] MEDS: RESP: ALBUTEROL 2.5 MG/3 ML NEB (PRN) INH (05:44)
[2016-08-21 06:29] LABS: AUTOMATED NEUTROPHIL # 9.9 TH/MM3 (1.8-7.7); BASOPHIL % 0.1 % (0.0-2.0); EOSINOPHIL % 0.1 % (0.0-4.0); HEMATOCRIT 33.8 % (35.0-46.0); LYMPH % 7.4 % (9.0-44.0); LYMPHOCYTE # 0.8 TH/MM3 (1.0-4.8); MEAN CELL VOLUME 64.8 FL (80.0-100.0); MEAN CORPUSCULAR HEMOGLOBIN 18.9 PG (27.0-34.0); MONO % 4.7 % (0.0-8.0); NEUT % 87.7 % (16.0-70.0); PLATELET COUNT 353 TH/MM3 (150-450); RED BLOOD COUNT 5.21 MIL/MM3 (4.00-5.30); WHITE BLOOD COUNT 11.2 TH/MM3 (4.0-11.0)
[2016-08-21 06:40] LABS: HEMO FLAGS AUTO DIFF
[2016-08-21 06:42] LABS: CHLORIDE 100 MEQ/L (98-107); POTASSIUM 4.4 MEQ/L (3.5-5.1); SODIUM (NA) 141 MEQ/L (136-145)
[2016-08-21 06:49] LABS: ANION GAP 4 MEQ/L (5-15); BICARBONATE 36.9 MEQ/L (21.0-32.0); BLOOD UREA NITROGEN 12 MG/DL (7-18)
[2016-08-21 06:51] LABS: ALT (GPT) 23 U/L (10-53); AST (GOT) 9 U/L (15-37)
[2016-08-21 06:52] LABS: GLOMERULAR FILTRATION RATE 111 ML/MIN (>89)
[2016-08-21 06:53] LABS: TOTAL BILIRUBIN ADULT 0.2 MG/DL (0.2-1.0)
[2016-08-21 06:54] LABS: ALKALINE PHOSPHATASE 76 U/L (45-117)
[2016-08-21] MEDS: INSULIN ASPART SUPPLEMENTAL SCALE SQ SCH ×2 (07:00→11:00)
[2016-08-21] MEDS: RESP: ALBUTEROL 2.5 MG/IPRATROPIUM 0.5 MG NEB (SCH) INH ×2 (07:28→14:11)
[2016-08-21 07:32] LABS: KERATOCYTES OCC (NORMAL); OVALOCYTES 2+ (NORMAL); SCAN/DIFF AUTO DIFF CONFIRMED; TARGET CELLS 1+ (NORMAL)
--- NOTE | 2016-08-21 07:43 | MB ---
cc: KAMERON GLOVER MD,JIE ROBLES M.D. HEMATOLOGY/ONCOLOGY CONSULTATION NOTE DATE OF CONSULTATION 08/19/2016 DATE OF 1950 [address] Jie Parkinson REASON FOR CONSULTATION Progressive microcytic anemia. CHIEF COMPLAINT Ms. Smith reports having symptoms of progressive difficulty breathing, cough, dizziness and fatigue, as well as a right-sided flank pain. HISTORY OF PRESENT ILLNESS Ms. Smith is a 66-year-old female who presented to [facility] in [place] on 08/17/2016 complaining of difficulty breathing, cough and dizziness. Imaging studies of the chest at the time of presentation revealed airspace consolidation in the right lower lung zone. Findings were concerning for an infectious process. She was assessed to have a COPD exacerbation/pneumonia and has been admitted to the hospital for intravenous corticosteroids and intravenous antibiotics. Over the course of the hospitalization, she became increasingly anemic with her hemoglobin levels dropping from 10.3 gm/dl at presentation down to 8.2 gm/dl as of today. Her MCV is low at 64, hematocrit is also low at below 30%. She has slightly elevated WBC count associated with mostly a neutrophilia. Platelet counts are normal. Peripheral smear was reviewed and findings were indicative of possible iron deficiency with ovalocytes, microcytosis, and isocytosis and increased pallor/hypochromasia. The oncology service has been consulted for further workup and evaluation of her microcytic anemia. In late July of 2016, the patient was seen as an outpatient by my associate Dr. Tarango who had recommended an outpatient anemia workup. The patient had not been able to pursue this. The anemia workup included serum iron studies, hemolytic work up, stool for occult blood testing, as well as serum protein electrophoresis amongst other testing. Per Ms. Smith, she has been struggling with anemia going back at least 10 years. She tells me she has required intermittent iron infusions for management of severe anemia. In fact in March of 2016, she underwent an EGD and colonoscopy performed at [facility]. She was found to have no evidence of active bleeding, but did report findings of multiple colonic polyps. Based on those findings, she was recommended repeat colonoscopy in July of 2016, the patient has not scheduled this study yet. Also in 2013, she was found to be severely anemic and underwent an EGD while she was still living in [place] and that EGD did reveal ulcers per the patient's verbal report. PAST MEDICAL HISTORY 1. COPD 2. Extensive personal history of tobaccoism 3. Anxiety and depression 4. Microcytic anemia 5. Reported history of transient ischemic attacks. 6. Eczema and psoriasis PAST SURGICAL HISTORY 1. Partial thyroidectomy 2. Left wrist ORIF 3. Multiple EGD's and colonoscopies. 4. Dermoid cyst removal from the pelvic area. 5. Surgical removal of multiple ovarian cysts 6. Appendectomy FAMILY HISTORY Father of complications of mesothelioma. Mom of complications of emphysema. SOCIAL HISTORY The patient is . She lives at home with her daughter and grandson. She is originally from [place], [place]. 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 She reports smoking most of her life, but quit about two months ago. ALLERGIES CODEINE WHICH CAUSES ITCHING, LATEX WHICH CAUSES ITCHING. SHE ALSO REPORTS AN ALLERGY TO PLAVIX WHICH CAUSES NOSEBLEEDS. . CURRENT INPATIENT MEDICATIONS 1. Ceftriaxone one gram IV q24h 2. Fioricet one tablet q6h as needed for headaches 3. Tylenol/Hydrocodone 325/5 mg p.o. q4h as needed for pain. 4. Albuterol nebulizers q4h 5. Atorvastatin 10 mg p.o. q.h.s. 6. Azithromycin 250 mg p.o. daily 7. Symbicort 2 puffs q12 hours 8. Klonopin 1 mg p.o. q.h.s. 9. Bentyl 10 mg p.o. b.i.d. 10. Famotidine 20 mg p.o. b.i.d. 11. Fluconazole 150 mg p.o. daily 12. Low-dose insulin sliding scale as per protocol 13. Methylprednisolone 40 mg IV q8h 14. Nystatin swish and swallow 5 mL p.o. four times daily 15. Oxybutynin 5 mg p.o. q12h 16. Pantoprazole 20 mcg p.o. b.i.d. 17. Chantix 1 mg p.o. q12h REVIEW OF SYSTEMS CONSTITUTIONAL: The patient reports fatigue, decreased appetite, dizziness. HEENT: Denies headaches, blurred vision, difficulty swallowing or soreness in the throat. RESPIRATORY: Reports difficulty breathing, denies cough or hemoptysis. CARDIOVASCULAR: Denies angina-like chest pain, PND, orthopnea. She does report palpitations. She denies lower extremity swelling. GI: Denies nausea, vomiting, diarrhea, hematochezia, or melena. : Denies dysuria, hematuria, or urinary incontinence. MUSCULOSKELETAL: Reports right-sided flank pain which is now improved. ARTS MANAGER: No focal sensory or motor deficits. SKIN: She reports having eczema and psoriasis PHYSICAL EXAMINATION VITAL SIGNS: Temperature 98.2 degrees Fahrenheit, heart rate 90 beats a minute, respiratory rate 18, blood pressure 120/70, O2 sat 94% on two liters nasal cannula. GENERAL PHYSICAL APPEARANCE: Ms. Smith is a middle-aged female, she is sitting up in bed, she appears to be in no acute distress but seems to have a jittery and anxious personality. HEENT: Head is atraumatic and normocephalic, conjunctive are pale. Sclerae are anicteric, EOMI, PERRLA, oral exam no pharyngeal erythema. NECK: No palpable cervical r supraclavicular lymphadenopathy. RESPIRATORY: Decreased bibasilar breath sounds, prolonged expiratory phase. She has scattered crepitus and scattered rhonchi. CARDIOVASCULAR: Regular rate and rhythm, S1-S2. No obvious murmurs, rubs or gallops. ABDOMEN: Protuberant belly, soft and nontender, nondistended. No palpable organ enlargement. EXTREMITIES: Lower extremities have no pretibial edema or calf tenderness. MUSCULOSKELETAL: Generally decreased muscle mass, tone and strength. LABORATORY FINDINGS Blood work dated 08/19/2016: WBC count 11.1, hemoglobin 8.2 gm/dl, hematocrit 27.9%, MCV 64.5, platelet count 261, absolute neutrophil count 10.4. Review of peripheral blood smear dated 08/19/2016: RBC lineage: Significant anisocytosis with hypochromasia. Clumping of the RBCs is noted. White blood cell lineage: Mature circulating neutrophils and lymphocytes appreciated. No dysplastic or dysmorphic findings appreciated. The nuclei of the neutrophils are not hypersegmented or poorly granulated. Platelets appear to be an adequate number and morphology. Chemistries: Sodium 144, potassium 4.2, chloride 107, bicarbonate 30.5, BUN 8, creatinine 0.46, EGFR 137, random glucose 128, HbA1c 6.4, calcium 8.1, total bilirubin 0.2, AST 10, ALT 16, alkaline phosphatase 70, albumin 2.2. IMAGING STUDIES Chest x-ray dated 08/19/2016: Right lower lobe consolidative changes without evidence of discrete mass. ASSESSMENT Ms. Smith is a 66-year-old female with what appears to be a longstanding history of microcytic anemia. She tells me in the past she has been found to have bleeding upper GI ulcers which have been cauterized. She tells the most recent episode was in 2013 while she was living in [place]. Most recently, she has been noted to have a declining hemoglobin and hematocrit. She is severely microcytic. The oncology service has been consulted to evaluate her microcytic anemia. She is presently in the hospital for management of what appears to be a COPD exacerbation with pneumonia. RECOMMENDATIONS 1. Severe microcytic anemia: I will initiate an anemia workup with serum iron studies including TIBC, serum iron level, percent iron saturation, ferritin level, as well as evaluation for mineral vitamin deficiency including folic acid and vitamin B12. Serum protein electrophoresis will also be ordered. Stool for occult blood testing will be ordered. Additionally, an LDH and haptoglobin level will be Ordered. 2. Empirically I will initiate the patient on folic acid, vitamin B12 as well as intravenous iron as she has difficulty tolerating oral iron. I will request outpatient followup with Dr. Tarango to further evaluate and manage her microcytic anemia. MD MAGDALENA Myles/ARNULFO /4:42 PM /7:21 AM
[2016-08-21 08:00] VITALS: BP 115/72; PULSE 84; RESP 18; TEMP 97.2; O2SAT 94
[2016-08-21] MEDS: BUDESONIDE-FORMOTEROL 160/4.5 MCG INHALER INH SCH (08:01)
[2016-08-21] MEDS: SODIUM CHLORIDE 0.9% FLUSH 5 ML FLUSH IVF SCH (08:01)
[2016-08-21] MEDS: OXYBUTYNIN CHLORIDE 5 MG TAB PO SCH (08:01)
[2016-08-21] MEDS: DICYCLOMINE HCL 10 MG CAP PO SCH (08:02)
[2016-08-21] MEDS: AZITHROMYCIN 250 MG TAB PO SCH (08:02)
[2016-08-21] MEDS: FAMOTIDINE 20 MG TAB PO SCH (08:02)
[2016-08-21] MEDS: VARENICLINE 1 MG TAB PO SCH (08:02)
[2016-08-21] MEDS: predniSONE 20 MG TAB PO SCH (08:02)
[2016-08-21] MEDS: PANTOPRAZOLE SOD 20 MG DELAYED RELEASE TAB PO SCH (08:02)
[2016-08-21] MEDS: NYSTATIN SUSP 500,000 U/5 ML CUP SWISH-SWAL SCH ×2 (08:03→13:48)
[2016-08-21] MEDS: ACETAMINOPHEN/HYDROcodone 325 MG/5 MG TAB PO PRN ×2 (08:03→13:49)
[2016-08-21 12:00] VITALS: BP 106/64; PULSE 81; RESP 18; TEMP 97.4; O2SAT 93
[2016-08-21] MEDS: cefTRIAXone INJ 1,000 MG in SODIUM CHLORIDE 0.9% INJ 100 ML IV SCH (13:49)
--- NOTE | 2016-08-21 13:53 | HHI.PR ---
Subjective Remarks Feeling better. More energy, ready to go home. Passes walk test. Objective Vitals Vital Signs Date Time Temp Pulse Resp B/P Pulse Ox O2 Delivery O2 Flow Rate FiO2 08/21/16 12:00 97.4 81 18 106/64 93 08/21/16 08:01 98 Nasal Cannula 2.00 08/21/16 08:00 97.2 84 18 115/72 94 08/21/16 00:00 96.8 76 18 125/72 98 08/20/16 23:36 20 08/20/16 20:00 95.9 80 18 136/83 96 08/20/16 19:13 Nasal Cannula 2.00 08/20/16 19:12 93 Nasal Cannula 2.00 08/20/16 16:00 97.3 93 18 118/70 94 08/20/16 08/20/16 08/21/16 15:00 23:00 07:00 Intake Total 340 ml Balance 340 ml Intake Oral 240 ml IV Total 100 ml # Voids 2 3 # Bowel Movements 0 Result Diagram: 08/21/16 0540 08/21/16 0540 Imaging Last Impressions Chest X-Ray 08/19/16 0000 Signed Impressions: Service Date/Time: Friday, August 19, 2016 12:38 - CONCLUSION: Patchy air space disease in the right lung. Serial films of resolution are suggested. Marcus Baird MD FACR Last Impressions Chest X-Ray 08/17/16 1309 Signed Impressions: Service Date/Time: Wednesday, August 17, 2016 13:19 - CONCLUSION: Abnormal air space consolidation in the right lower lung zone. Given the history of cough this is characteristic of an infectious process/pneumonia. Stiven Steve MD Objective Remarks walking in room odd oxygen speaking in full sentences rt base les ronchi, lungs otherwise clear ext No edema, A/P Problem List: (1) Pneumonia Status: Acute Plan: currently on rocephin, azithromycin will change to po medications f/u xray as outpatient (2) Steroid-dependent COPD Status: Chronic Plan: on 10 mg prednisone daily, will discharge initially on 20 mg bid taper as outpatient (3) Anxiety Status: Chronic Plan: cont home medications (4) Anemia Status: Chronic Plan: cont to monitor, has been undergoing evaluation by hematology per patient , however sounds like her blood work was never followed through due to miscommunication , anemia may certainly be contributing to her sob, seen by hematology and recieved iron infusion, will f/u with Dr Tarango as outpatient. (5) Chronic back pain Status: Chronic Plan: cont lortab 5, comfortable with this dose (6) Nicotine dependence Status: Chronic Plan: continues on chantix and per report has not smoked in over 50 days (7) Thrush Status: Resolved Plan: recurrent problem for her treated with nystatin and diflucan Discharge Planning discharge today Problem Qualifiers (1) Pneumonia: Qualified Code: J18.1 - Pneumonia of right lower lobe due to infectious organism Thais Castellanos MD Aug 21, 2016 13:53
[2016-08-21] MEDS ORDERED: VARE1 PO (14:14)
[2016-08-21] MEDS ORDERED: PRED20 PO (14:14)
[2016-08-21] MEDS ORDERED: ZITH250T PO (14:14)
[2016-08-21] MEDS ORDERED: BUTATAB6 PO (14:14)
[2016-08-21] MEDS ORDERED: CEFD300C PO (14:14)
[2016-08-21] MEDS ORDERED: NYST1000 SWISH-SWAL (14:14)
--- NOTE | 2016-10-10 20:36 | HHI.DS ---
Discharge Summary Admission Date Aug 17, 2016 at 14:38 Discharge Date: Aug 21, 2016 Admitting Diagnosis pneumonia (1) Pneumonia Diagnosis: Principal (2) Steroid-dependent COPD Diagnosis: Secondary (3) Anxiety Diagnosis: Secondary (4) Anemia Diagnosis: Secondary (5) Chronic back pain Diagnosis: Secondary (6) Nicotine dependence Diagnosis: Secondary (7) Thrush Diagnosis: Secondary Consultants Dr. Martinez for Hematology Brief History Patient presented to [facility] for increased cough, sob and lightheadedness. Had completed course of antibiotics and prednisone as part of [facility] copd program. Chest xray showed RLL pneumonia. She was placed on antibiotics and steroids as well as oxygen and admitted. Imaging Last Impressions Chest X-Ray 08/19/16 0000 Signed Impressions: Service Date/Time: Friday, August 19, 2016 12:38 - CONCLUSION: Patchy air space disease in the right lung. Serial films of resolution are suggested. Marcus Baird MD FACR PE at Discharge walking in room odd oxygen speaking in full sentences [facility], lungs otherwise clear ext No edema, Hospital Course Patient tolerated antibiotics but developed thrush and yeast infection treated with diflucan. She was weaned off IV steroids. And at discharge was less sob and not requiring oxygen. She was anemic on presentation with partial w/u of her anemia. Since this may have contributed to her sob Hematology was asked to see her. She was seen by Dr Martinez who ordered bloodwork to be followed as outpatient. She also recieved iron infusion. Pt Condition on Discharge: Stable Discharge Disposition: Discharge Home Discharge Instructions DIET: Follow Instructions for: As Tolerated, No Restrictions Activities you can perform: Regular-No Restrictions New Medications: Cefdinir (Cefdinir) 300 Mg Cap 300 MG PO BID Infection #14 Ref 0 CAP Azithromycin (Zithromax) 250 Mg Tab 250 MG PO DAILY pneumonia #2 TAB Fqphjgiquj-Usujwzzhwbgzy-Ghfibhyk (Rcapqtekpp-Xxvhrnpgjcezi-Fzjuisiu) 50-325-40 Mg Tab 1 TAB PO Q6H PRN headache #30 TAB Nystatin Liq (Nystatin Liq) 100,000 unit/ml Susp 5 ML SWISH-SWAL QID thrush #120 ML Prednisone (Prednisone) 20 Mg Tab 20 MG PO BID copd #14 TAB Varenicline (Chantix) 1 Mg Tab 1 MG PO Q12HR nicotine dependence #60 TAB Continued Medications: Albuterol 8.5 GM Inh (Proair Hfa 8.5 GM Inh) 90 Mcg/Act Aer 2 PUFF INH Q4-6H 108 mcg/actuation PRN SHORTNESS OF BREATH #1 Ref 0 INHALER Albuterol Neb (Albuterol Neb) 1.25 Mg/3 Ml Neb 1.25 MG NEB Q6HR NEB PRN SHORTNESS OF BREATH #50 Ref 0 NEBULE Amitriptyline HCl (Elavil) 25 Mg Tab Atorvastatin (Atorvastatin) 10 Mg Tab 10 MG PO HS Cholesterol Management #30 Ref 0 TAB Calcium Carbonate-Folic Acid-Vitamin D3 (Calcium-Folic Acid Plus D) 1,342-1-300 Mg-Mg-Unit Wafr 1 TAB CHEW BID TAB Clonazepam (Clonazepam) 1 Mg Tab 1 MG PO HS #60 Ref 0 TAB Dicyclomine (Bentyl) 10 Mg Cap 10 MG PO BID Bowel Management Ref 0 CAP Fluticasone-Salmeterol Inh (Advair Diskus Inh) 500-50 Mcg/Blist Aer 1 PUFF INH BID Rinse mouth after use. #1 Ref 0 INHALER Hydrocodone-Acetaminophen (Lortab) 5-325 Mg Tab 1 TAB PO Q4H PRN PAIN Ref 0 TAB Oxybutynin (Ditropan) 5 Mg Tab 5 MG PO Q12HR Urinary Symptom Managemen #60 Ref 0 TAB Pantoprazole (Protonix) 20 Mg Tab 20 MG PO BID Reflux #30 Ref 0 TAB Ranitidine (Zantac) 150 Mg Tab 150 MG PO BID Reduce Stomach Acid #60 Ref 0 TAB Tiotropium Inh (Spiriva Handihaler) 18 Mcg Cap 18 MCG INH DAILY 1 capsule = 18 mcg COPD #30 Ref 0 CAP Discontinued Medications: Prednisone (Prednisone) 10 Mg Tab 10 MG PO DAILY Ref 0 TAB Thais Castellanos MD Oct 10, 2016 20:36
== END 2016-08-21 17:53 | disposition home or self-care (01) | DRG 190 ==
LOC: PHED 12:42 → HPAC 14:38 → NEDA 15:03 → PHEDA 15:38 → PH3A 16:19
PROVIDERS: ADMIT Legal Medicine; ATTEND Legal Medicine
DX: J44.0 Chronic obstructive pulmonary disease with (acute) lower respiratory infection (principal); J18.9 Pneumonia, unspecified organism; J44.1 Chronic obstructive pulmonary disease with (acute) exacerbation; Z79.52 Long term (current) use of systemic steroids; Z87.891 Personal history of nicotine dependence; D50.9 Iron deficiency anemia, unspecified; B37.9 Candidiasis, unspecified; I25.10 Atherosclerotic heart disease of native coronary artery without angina pectoris; E78.5 Hyperlipidemia, unspecified; F41.9 Anxiety disorder, unspecified; M54.5 Low back pain; G89.29 Other chronic pain; Z86.010 Personal history of colon polyps; Z86.73 Personal history of transient ischemic attack (TIA), and cerebral infarction without residual deficits
CPT/HCPCS: 71010; 71020; 80048; 80053; 81001; 82272; 82607; 82728; 82746; 82948; 83010; 83036; 83540; 83550; 83605; 83615; 83735; 84165; 84484; 85025; 85610; 85730; 86850; 86900; 86901; 87040; 87804; 93005; 94620; 94640; 94664; 96361; 96374; J0456; J0696; J1756; J1815; J2920; J2930; J3480; J7030; J7050; J7512; J7613

== ENCOUNTER → 2016-12-24 | Outpatient (CLI) | payer MEDICARE ==
[~2016-12-24] MED LIST changes: -ALBU0.086 NEB; -ALBU0.63 NEB; +ALBU1.25 NEB; -ALBU6.7H INH; +ALBUAER3 INH; +AMIT1TAB79; -AMIT25TA20 PO; -ATOR10TA PO; +ATOR10TA15 PO; -BACT800T5 PO; +BUTATAB6 PO; +CEFD300C PO; -CLON1 PO; +CLON1TAB PO; +HYDR-3533 PO; -LORT5TAB PO; +NYST1000 SWISH-SWAL; -OS-CTAB3 PO; +OXYB5TAB10 PO; -OXYB5TAB33 PO; +PANT20 PO; -PRED10PA PO; -PROT40TA PO; -RANI150 PO; -TAB-TAB PO; +VARE1 PO; +ZANT150T2 PO; +ZITH250T PO; +[UNRECOGNIZED DRUG - CODE] CHEW
--- NOTE | 2016-12-27 09:57 | RSPPFT ---
DATE OF PROCEDURE: 12/24/16 COMMENTS: Spirometry shows FVC of 2.1 at 80% of predicted, FEV1 of 1.0 at 46%, FEV1/FVC ratio is decreased. Flow is decreased at FEF 25, FEF 50, FEF 75 and FEF 25-75. There is a mild response after bronchodilator treatment. Lung volumes show residual volume is increased. TLC is increased. Diffusion capacity is decreased. Flow volume loop indicates an obstructive pattern. IMPRESSION: 1. Moderately severe obstructive lung disease. 2. Mild response after bronchodilator treatment. 3. Lung volumes show hyperinflation and air trapping. 4. Severe loss in diffusion capacity.
== END ==
LOC: HRSP 08:45
PROVIDERS: ATTEND Specialist
DX: J44.9 Chronic obstructive pulmonary disease, unspecified (principal)
CPT/HCPCS: 94060; 94726; 94729

== ENCOUNTER → 2017-05-15 | Outpatient (CLI) | payer MEDICARE ==
[~2017-05-15] VITALS: Ht 157.5 cm; Wt 53.3 kg
[~2017-05-15] MED LIST changes: +AMIT25TA9 PO; +CHLORHEXIDINE GLUCONATE 2 % 1 PACK (2 CLOTHS) TOPICAL PRN; +HYDR-3516 PO; +LACTATED RINGER'S 1000 ML IV PRN; +LIDOCAINE HCL 1% PF 5 ML SYRINGE OTHER ONE; +METOPROLOL TARTRATE 25 MG TAB PO PRN; -OXYB5TAB10 PO; +OXYB5TAB8 PO; +POVIDONE IODINE 5% (ANTISEPSIS KIT) 4 APPLICATIONS EACH NARE PRN; +PROPOFOL 200 MG/20 ML AMP IV ONE; +SODIUM CHLORID 0.9% 500 ML IV PRN
--- NOTE | 2017-05-15 16:43 | GIPROC ---
[facility] [address] [facility]. [facility], [address] EGD WITH DILATION PROCEDURE REPORT EXAM DATE: 05/15/2017 PATIENT NAME: Esteafni Smith MR#: [id number] BIRTHDATE: 1950 ATTENDING: Angela Baker MD ORDER #: [id number] HOME SERVICE CONSULTANT: Sepideh Angulo and Rocky Bermeo STATUS: outpatient INDICATIONS: The patient is a 66 yr old female here for an EGD with dilation due to anemia, dysphagia, reflux PROCEDURE PERFORMED: EGD w/ biopsy EGD w/ dilation of esophagus via guidewire MEDICATIONS: None and Per Anesthesia. TOPICAL ANESTHETIC: none CONSENT: The patient understands the risks and benefits of the procedure and understands that these risks include, but are not limited to: sedation, allergic reaction, infection, perforation and/or bleeding. Alternative means of evaluation and treatment include, among others: physical exam, x-rays, and/or surgical intervention. The patient elects to proceed with this endoscopic procedure. medical equipment was checked for proper function. Hand hygiene and appropriate measures for infection prevention was taken. After the risks, benefits and alternatives of the procedure were thoroughly explained, Informed consent was verified, confirmed and timeout was successfully executed by the treatment team. The patient was anesthetized with topical anesthesia and the EC-[id number] (Pedi C) endoscope was introduced through the mouth and advanced to the second portion of the duodenum. The instrument was slowly withdrawn as the mucosa was fully examined. Duodenum normal-biopsy to r/o celiac disease gastritis antrum-biopsy esophagitis distal esophagus-biopsy spasm distal esophagus -s/p dilatation using Savary dilator 16. Dilation was performed at gastroesophageal junction. DILATOR: SIZE(S): RESISTANCE: HEME: APPEARANCE: Dilator: Savary over guidewire Size(s): 16 COMMENT: Retroflexed views revealed a hiatal hernia ADVERSE EVENTS: There were no complications. IMPRESSIONS: 1. Duodenum normal-biopsy to r/o celiac disease gastritis antrum-biopsy esophagitis distal esophagus-biopsy spasm distal esophagus -s/p dilatation using Savary dilator 16 2. Retroflexed views revealed a hiatal hernia RECOMMENDATIONS: 1. Await biopsy results. Biopsy results will not be ready for 7-10 days. If you don't hear from us in two weeks, call our office for biopsy results. 2. Anti-reflux regimen 3. Continue PPI 4. Dilatations PRN 5. Capsule endoscopy REPEAT EXAM: Return 3 years EGD Angela Baker MD eSigned: Angela Baker MD 05/15/2017 4:42 PM cc: Reji Parkinson M.D. PATIENT NAME: Estefani Smith MR#: [id number]
--- NOTE | 2017-05-15 16:46 | GIPROC ---
[facility] [address] [facility]. [facility], [address] COLONOSCOPY PROCEDURE REPORT EXAM DATE: 05/15/2017 PATIENT NAME: Estefani Smith MR #: [id number] BIRTHDATE: 1950 ENDOSCOPIST: Angela Baker MD ORDER #: [id number] GERIATRIC CASE MANAGER: Rocky Bermeo and Sepideh Angulo STATUS: outpatient INDICATIONS: The patient is a 66 yr old female here for a colonoscopy due to anemia, history of polyps PROCEDURE PERFORMED: Colonoscopy with biopsy MEDICATIONS: None and Per Anesthesia. PREP QUALITY: fair PREP TYPE:Other: ESTIMATED BLOOD LOSS: None CONSENT: The patient understands the risks and benefits of the procedure and understands that these risks include, but are not limited to: sedation, allergic reaction, infection, perforation and/or bleeding. Alternative means of evaluation and treatment include, among others: physical exam, x-rays, and/or surgical intervention. The patient elects to proceed with this endoscopic procedure. medical equipment was checked for proper function. Hand hygiene and appropriate measures for infection prevention was taken. After the risks, benefits and alternatives of the procedure were thoroughly explained, Informed consent was verified, confirmed and timeout was successfully executed by the treatment team. A digital exam revealed external hemorrhoids The Pentax EC-3490Li endoscope was introduced through the anus and advanced to the cecum, which was identified by both the appendix and ileocecal valve. The instrument was then slowly withdrawn as the colon was fully examined. COLON FINDINGS: Diverticulosis sigmoid,descending diminutive polyp ascending-biopsy diminutive polyp transverse-biopsy diminutive polyp rectum-biopsy. Retroflexed views revealed internal hemorrhoids and Retroflexed views revealed medium internal hemorrhoids The scope was then completely withdrawn from the patient and the procedure terminated. PROCEDURE WITHDRAWAL TIME:6minutes ADVERSE EVENTS: There were no complications. IMPRESSIONS: 1. Diverticulosis sigmoid,descending diminutive polyp ascending-biopsy diminutive polyp transverse-biopsy diminutive polyp rectum-biopsy 2. Retroflexed views revealed internal hemorrhoids 3. Retroflexed views revealed medium internal hemorrhoids 4. Revealed external hemorrhoids RECOMMENDATIONS: 1. Await biopsy results. Biopsy results will not be ready for 7-10 days. If you don't hear from us in two weeks, call our office for results. 2. Avoid NSAIDS and Aspirin RECALL: Return 5 years Colonoscopy Angela Baker MD eSigned: Angela Baker MD 05/15/2017 4:45 PM cc: Reji Parkinson M.D.
[2017-05-15 17:12] VITALS: BP 112/65; PULSE 89; RESP 18; TEMP 98.2; O2SAT 95
== END ==
LOC: HEND 13:47
PROVIDERS: ATTEND Internal Medicine Gastroenterology
DX: K22.2 Esophageal obstruction (principal); R13.10 Dysphagia, unspecified; K21.0 Gastro-esophageal reflux disease with esophagitis; K29.70 Gastritis, unspecified, without bleeding; K63.5 Polyp of colon; K62.1 Rectal polyp; K64.4 Residual hemorrhoidal skin tags; K64.8 Other hemorrhoids; K57.30 Diverticulosis of large intestine without perforation or abscess without bleeding; D64.9 Anemia, unspecified
CPT/HCPCS: 00740; 43239; 43248; 45380; 88305; C1769

== ENCOUNTER 2018-08-02 13:04 | Inpatient (IN) ==
[2018-08-02] MEDS ORDERED: MethylPREDNISolone Sod Succinate Inj 125 MG/2 ML Vial IV.PUSH ONE (13:17)
[2018-08-02 13:54] LABS: Baso % (Auto) 0.2 % (0.0-2.0); Eos % (Auto) 0.1 % (0.0-4.0); Hematocrit 41.7 % (35.0-46.0); Hemoglobin 13.5 gm/dL (11.6-15.3); Lymph # (Auto) 0.2 th/mm3 (1.0-4.8); Lymph % (Auto) 3.4 % (9.0-44.0); Mean Corpuscular HGB Conc 32.4 % (32.0-36.0); Mean Corpuscular Hemoglobin 27.4 pg (27.0-34.0); Mean Corpuscular Volume 84.7 fL (80.0-100.0); Mean Platelet Volume 7.6 fL (7.0-11.0); Mono # (Auto) 0.5 th/mm3 (0.0-0.9); Mono % (Auto) 7.2 % (0.0-8.0); Neut # (Auto) 6.3 th/mm3 (1.8-7.7); Neut % (Auto) 89.1 % (16.0-70.0); Platelet Count 252 th/mm3 (150-450); Red Blood Count 4.92 mil/mm3 (4.00-5.30); Red Cell Distribution Width 14.3 % (11.6-17.2)
[2018-08-02 14:02] LABS: Chloride 104 meq/L (98-107); Sodium 138 meq/L (136-145)
--- NOTE | 2018-08-02 14:02 | XR ---
EXAM DATE: 08/02/2018 1:39 PM EST AGE/SEX: 68 years / Female INDICATIONS: . Cough. CLINICAL DATA: This is the patient's initial encounter. Patient reports that signs and symptoms have been present for 3 days and indicates a pain score of 0/10. MEDICAL/SURGICAL HISTORY: . Emphysema. Chronic obstructive pulmonary disease. Anemia. None. COMPARISON: POI, CT CHEST W/O CONTRAST, 05/08/2018. . FINDINGS: There is underlying emphysema. No focal consolidation or effusion. No pneumothorax. Heart size normal . CONCLUSION: Emphysema. No acute findings. Electronically signed by: Jf Steel MD Board Certified Radiologist 08/02/2018 2:00 PM EST
[2018-08-02] MEDS: Sod Chloride 0.9% Inj 1,000 ML IV.SIG SCH ×2 (14:03→14:51)
[2018-08-02 14:05] LABS: Calcium 8.1 mg/dL (8.5-10.1)
[2018-08-02 14:06] LABS: Albumin 3.4 g/dL (3.4-5.0); Anion Gap 7 meq/L (5-15); Blood Urea Nitrogen 9 mg/dL (7-18); Carbon Dioxide 27.5 meq/L (21.0-32.0); Glucose,Random 175 mg/dL (74-106)
[2018-08-02 14:09] LABS: Alanine Aminotransferase 23 U/L (10-53); Aspartate Aminotransferase 23 U/L (15-37); Glomerular Filtration Rate 73 mL/min (>89)
[2018-08-02 14:11] LABS: Total Protein 6.5 g/dL (6.4-8.2)
[2018-08-02 14:12] LABS: Alkaline Phosphatase 63 U/L (45-117)
[2018-08-02] MEDS ORDERED: Azithromycin Inj 500 MG in Sodium Chlor 0.9% Inj 250 ML IV.SIG ONE (14:14)
--- NOTE | 2018-08-02 14:29 | ED ---
HPI General Chief Complaint: Respiratory Symptoms Stated Complaint: cough/sob Time Seen by Provider: 08/02/18 13:17 Source: patient Limitations: no limitations History of Present Illness HPI Narrative: Patient is a 68-year-old female, past medical history significant for COPD but no chronic oxygen requirement, who presents with complaint of worsening cough and shortness of breath with a productive cough. She has had chills and believe she had a fever that she does not know to what temperature. She is on a specific COPD protocol and yesterday took 40 mg of prednisone with a dose of doxycycline for presumed COPD exacerbation in addition to increasing her breathing treatments but she continues to feel worse and thus came here today. No leg swelling nor immobilization. No chest pain. She has had her flu shot this year. MD Complaint: Reports cough and rhinorrhea Onset (ago): day(s) Duration: constant Severity: moderate Relieving factors: nothing Exacerbating factors: nothing Description of mucous: Reports green Able to tolerate fluids by mouth: Yes Associated symptoms: Reports chills Treatments prior to arrival: Reports other Related Data Home Medications Medication Instructions Recorded Confirmed albuterol sulfate 1.25 mg INHALATION QID PRN 08/02/18 08/02/18 albuterol sulfate 2 puff INHALATION Q4-6H PRN 08/02/18 08/02/18 amitriptyline 25 mg PO DAILY 08/02/18 08/02/18 atorvastatin 10 mg PO DAILY 08/02/18 08/02/18 zzqwopxapv-cesobgeotfhgw-qrwq 1 cap PO Q4H PRN 08/02/18 08/02/18 [Fioricet] clonazepam 1 mg PO HS 08/02/18 08/02/18 dicyclomine 10 mg PO BID 08/02/18 08/02/18 duloxetine 30 mg PO DAILY 08/02/18 08/02/18 zywzelxytqi-ouzvcgthd-yhrgavck 1 inh INHALATION DAILY 08/02/18 08/02/18 [Trelegy Ellipta] hydrocodone-acetaminophen 1 tab PO Q6H PRN 08/02/18 08/02/18 oxybutynin chloride 5 mg PO BID 08/02/18 08/02/18 pantoprazole 40 mg PO BID 08/02/18 08/02/18 prednisone 10 mg PO DAILY 08/02/18 08/02/18 ranitidine HCl 150 mg PO DAILY 08/02/18 08/02/18 tizanidine 2 mg PO TID PRN 08/02/18 08/02/18 Allergies Allergy/AdvReac Type Severity Reaction Status Date / Time alendronate sodium Allergy Severe vomiting Verified 05/15/17 14:28 codeine Allergy Severe ITCHING Unverified 05/15/17 14:28 latex Allergy Severe CAUSES HER Unverified 05/15/17 14:28 TO BREAK OUT promethazine Allergy Severe Verified 05/15/17 14:28 umeclidinium Allergy Severe rash Verified 05/15/17 14:28 clopidogrel AdvReac Unknown Unverified 05/15/17 14:28 Review of Systems ROS: all other systems reviewed are negative [facility] Medical History Medical History Anemia (Acute) Anxiety and depression (Acute) Back pain (Acute) COPD (chronic obstructive pulmonary disease) (Acute) Chronic back pain (Acute) History of pneumonia (Acute) Insomnia (Acute) Social History Social History Substance History: No History of Abuse Smoking Status: Former smoker Tobacco Type: Cigarettes How Often Do You Have a Drink Containing Alcohol: Never Recent Travel in [facility] within the Last 8 Weeks: No Recent Out of Country Travel within the Last 8 Weeks: No Immunization History Tetanus Immunization: <5 Years Exam Narrative Exam Narrative: GENERAL: Ill-appearing female, coughing SKIN: Focused skin assessment warm/dry. No rashes. HEAD: Atraumatic. Normocephalic. EYES: Pupils equal and round. No scleral icterus. No injection or drainage. ENT: No nasal bleeding or discharge. Mucous membranes pink and moist. NECK: Trachea midline. No JVD. CARDIOVASCULAR: Tachycardic but regular. No murmur appreciated. Intact and equal peripheral pulses. RESPIRATORY: Faint wheezes throughout with rhonchi in the left lower lung base. GASTROINTESTINAL: Abdomen soft, non-tender, nondistended. Hepatic and splenic margins not palpable. MUSCULOSKELETAL: No obvious deformities. No clubbing. No cyanosis. No edema. NEUROLOGICAL: Awake and alert. No obvious cranial nerve deficits. Motor grossly within normal limits. Normal speech. PSYCHIATRIC: Appropriate mood and affect; insight and judgment normal. Course Initial Documented Vital Signs Temperature 100.0 F H 08/02/18 13:25 Pulse Rate 123 H 08/02/18 13:25 Respiratory Rate 22 08/02/18 13:25 Blood Pressure 136/71 08/02/18 13:25 Pulse Oximetry 88 L 08/02/18 13:25 Last Documented Vital Signs Temperature 100.0 F H 08/02/18 13:25 Pulse Rate 114 H 08/02/18 14:19 Respiratory Rate 22 08/02/18 14:19 Blood Pressure 136/71 08/02/18 13:25 Pulse Oximetry 88 L 08/02/18 13:25 Medical Decision Making MDM Narrative Medical decision making narrative: Patient is a 68-year-old female who presents with complaint of shortness of breath and cough with chills. Temp is 100 on arrival. She does have wheezes throughout with rhonchi in the left lower lung base. She is tachypneic and tachycardic and thus is also PERC positive. She is low risk [address] [place]. Labs reveal a normal white blood cell count but with increased neutrophils. Troponin and d-dimer are within normal limits. Chest x- ray shows emphysematous changes. Lactate is elevated. Her chest x-ray does not show a consolidation given her abnormal breath sounds, oxygen requirement, increased neutrophil count she has been started on Rocephin and azithromycin for possible community-acquired pneumonia versus COPD exacerbation. She will be admitted for further evaluation and management. Medical Screen Exam Complete: Yes Emergency Medical Condition: Yes Differential Diagnosis Differential Diagnosis: Differential diagnosis includes but is not limited to COPD exacerbation, influenza, pneumonia, pulmonary embolism. Medical Records Medical records reviewed: Yes I reviewed the patient's medical records. Lab Data Result diagrams: 08/02/18 13:40 08/02/18 13:40 Lab Results 08/02/18 08/02/18 08/02/18 Range/Units 13:40 13:40 13:40 CBC w Diff Auto diff final WBC 7.0 (4.0-11.0) th/mm3 RBC 4.92 (4.00-5.30) mil/mm3 Hgb 13.5 (11.6-15.3) gm/dL Hct 41.7 (35.0-46.0) % MCV 84.7 (80.0-100.0) fL MCH 27.4 (27.0-34.0) pg MCHC 32.4 (32.0-36.0) % RDW 14.3 (11.6-17.2) % Plt Count 252 (150-450) th/mm3 MPV 7.6 (7.0-11.0) fL Neut % (Auto) 89.1 H (16.0-70.0) % Lymph % (Auto) 3.4 L (9.0-44.0) % Wright % (Auto) 7.2 (0.0-8.0) % Eos % (Auto) 0.1 (0.0-4.0) % Baso % (Auto) 0.2 (0.0-2.0) % Neut # (Auto) 6.3 (1.8-7.7) th/mm3 Lymph # (Auto) 0.2 L (1.0-4.8) th/mm3 Wright # (Auto) 0.5 (0.0-0.9) th/mm3 Eos # (Auto) 0.0 (0.0-0.4) th/mm3 Baso # (Auto) 0.0 (0.0-0.2) th/mm3 WBC Differential . Differential Comment . D-Dimer Quant (PE/DVT) (0.00-0.50) mg/L FEU Sodium 138 (136-145) meq/L Potassium 4.0 (3.5-5.1) meq/L Chloride 104 (98-107) meq/L Carbon Dioxide 27.5 (21.0-32.0) meq/L Anion Gap 7 (5-15) meq/L BUN 9 (7-18) mg/dL Creatinine 0.79 (0.50-1.00) mg/dL Estimated GFR 73 L (>89) mL/min Random Glucose 175 H (74-106) mg/dL Lactic Acid 3.2 H (0.4-2.0) mmol/L Calcium 8.1 L (8.5-10.1) mg/dL Total Bilirubin 0.3 (0.2-1.0) mg/dL AST 23 (15-37) U/L ALT 23 (10-53) U/L Alkaline Phosphatase 63 (45-117) U/L Troponin I Less than 0.02 L (0.02-0.05) ng/mL B-Natriuretic Peptide (0-100) pg/mL Total Protein 6.5 (6.4-8.2) g/dL Albumin 3.4 (3.4-5.0) g/dL Urine Color (Yellw/Straw) Urine Clarity (Clear) Urine pH (5.0-8.5) Ur Specific [place] (1.002-1.035) Urine Protein (Neg-Trace) mg/dL Urine Glucose (UA) (Negative) mg/dL Urine Ketones (Negative) mg/dL Urine Occult Blood (Negative) Urine Nitrate (Negative) Urine Bilirubin (Negative) Urine Urobilinogen (Less than 2) mg/dL Ur Leukocyte Esterase (Negative) 08/02/18 08/02/18 08/02/18 Range/Units 13:40 13:40 14:41 CBC w Diff WBC (4.0-11.0) th/mm3 RBC (4.00-5.30) mil/mm3 Hgb (11.6-15.3) gm/dL Hct (35.0-46.0) % MCV (80.0-100.0) fL MCH (27.0-34.0) pg MCHC (32.0-36.0) % RDW (11.6-17.2) % Plt Count (150-450) th/mm3 MPV (7.0-11.0) fL Neut % (Auto) (16.0-70.0) % Lymph % (Auto) (9.0-44.0) % Wright % (Auto) (0.0-8.0) % Eos % (Auto) (0.0-4.0) % Baso % (Auto) (0.0-2.0) % Neut # (Auto) (1.8-7.7) th/mm3 Lymph # (Auto) (1.0-4.8) th/mm3 Wright # (Auto) (0.0-0.9) th/mm3 Eos # (Auto) (0.0-0.4) th/mm3 Baso # (Auto) (0.0-0.2) th/mm3 WBC Differential Differential Comment D-Dimer Quant (PE/DVT) 0.44 (0.00-0.50) mg/L FEU Sodium (136-145) meq/L Potassium (3.5-5.1) meq/L Chloride (98-107) meq/L Carbon Dioxide (21.0-32.0) meq/L Anion Gap (5-15) meq/L BUN (7-18) mg/dL Creatinine (0.50-1.00) mg/dL Estimated GFR (>89) mL/min Random Glucose (74-106) mg/dL Lactic Acid (0.4-2.0) mmol/L Calcium (8.5-10.1) mg/dL Total Bilirubin (0.2-1.0) mg/dL AST (15-37) U/L ALT (10-53) U/L Alkaline Phosphatase (45-117) U/L Troponin I (0.02-0.05) ng/mL B-Natriuretic Peptide 88 (0-100) pg/mL Total Protein (6.4-8.2) g/dL Albumin (3.4-5.0) g/dL Urine Color Yellow (Yellw/Straw) Urine Clarity Clear (Clear) Urine pH 6.5 (5.0-8.5) Ur Specific [place] Less/equal 1.005 (1.002-1.035) Urine Protein Negative (Neg-Trace) mg/dL Urine Glucose (UA) 500 H (Negative) mg/dL Urine Ketones Negative (Negative) mg/dL Urine Occult Blood Negative (Negative) Urine Nitrate Negative (Negative) Urine Bilirubin Negative (Negative) Urine Urobilinogen 0.2 (Less than 2) mg/dL Ur Leukocyte Esterase Negative (Negative) Imaging Data Radiologist's impression: Chest X-Ray 08/02/18 13:17 CONCLUSION: Emphysema. No acute findings. Discharge Plan Discharge Disposition Patient Disposition: ED Admit(ED Internal Use Only) Discharge Condition Condition: Stable Discharge Order Discharge Orders: ED Use Only Admit Order (Routine); Ordered 08/02/18 Ordered By: Charity Cutler Discharge Details Diagnosis: Acute exacerbation of chronic obstructive pulmonary disease (COPD), Influenza A , Hypoxia Physicians Team ED Provider: Charity Cutler Primary Care Provider: Reji Parkinson Attending Provider: Reji Parkinson Status ED Status: Admitted Patient
[2018-08-02] MEDS ORDERED: Oseltamivir Phosphate 75 MG Capsule PO ONE (14:31)
[2018-08-02 15:01] LABS: Bilirubin,Urine Negative (Negative); Clarity,Urine Clear (Clear); Color,Urine Yellow (Yellw/Straw); Glucose,Urine (UA) 500 mg/dL (Negative); Leukocyte Esterase,Urine Negative (Negative); Nitrite,Urine Negative (Negative); PH,Urine 6.5 (5.0-8.5); Specific Gravity,Urine Less/Equal 1.005 (1.002-1.035); Urobilinogen,Urine 0.2 mg/dL (Less than 2)
[2018-08-02 15:05] LABS: Squamous Epithelial Cell,Urine 0-5 /hpf (0-5); WBC,Urine 0-5 /hpf (0-5)
--- NOTE | 2018-08-02 16:28 | P.HP ---
History of Present Illness Service: [facility] Adult med Primary Care Physician: Reji Parkinson MD, PhD Chief Complaint: cough, increased dyspnea History of Present Illness: Patient is a 68-year-old female with severe COPD, tobacco use, MDD and chronic low back pain well known to me who presents with complaint of worsening cough and shortness of breath with a productive cough over last 2 days. Her baseline RA sat is around 94-96% and she is not currently on chronic supplemental oxygen. She has had chills and subjective fever. Her temp at home this AM was 101 and her sat ranged b/t 76-86% on RA on her home oximeter device. She is on an outpt COPD protocol and yesterday took 40 mg of prednisone with a dose of doxycycline for presumed COPD exacerbation in addition to increasing her breathing treatments. Despite these interventions, she continued to feel worse and thus came to the ER today. No leg swelling nor immobilization. No chest pain. She has had her flu shot this year. Her ER eval is noted for hypoxia with sats in mid to upper 80s on RA. CXR negative for acute infiltrate. Trop, D- dimer, BNP negative. Flu antigen is positive. She gets Flu vaccine annually and received her last shot in Feb 2018. It is noted that she has resumed cigarette use and just started Chantix again in efforts to stop smoking. She has been given supplemental oxygen, steroids, IV Abx, Nebs and has responded relatively well. It is noted that her adult daughter has had similar symptoms the last few days and lives with pt. - Diagnosis (1) Acute exacerbation of chronic obstructive pulmonary disease (COPD) (2) Hypoxia (3) Influenza A (4) Chronic back pain (5) GERD (gastroesophageal reflux disease) (6) MDD (major depressive disorder) Inpatient Certification: I certify that the inpatient services were ordered in accordance with Medicare regulations governing the order. This includes certification that hospital inpatient services are reasonable and necessary and in the case of services not specified as inpatient-only under 42 CFR 419.22(n), that they are appropriately provided as inpatient services in accordance to with the 2-midnight benchmark under 43 CFR 412.3(e) Review of Systems Constitutional: Reports chills, Reports fatigue, Reports fever(s), Reports lack of energy, Reports malaise, Reports weakness Eyes: Denies blind spots, Denies blurry vision, Denies bulging eyes, Denies change in vision, Denies double vision, Denies discharge, Denies dry eyes, Denies floaters, Denies irritation, Denies itchy eyes, Denies loss of vision, Denies pain, Denies requires corrective lenses, Denies sensitivity to light, Denies other Ears, Nose, Mouth, and Throat: Denies abnormal hearing, Denies bleeding gums, Denies bad breath, Denies change in voice, Denies dental pain, Denies difficulty swallowing, Denies dizziness, Denies dry mouth, Denies ear discharge , Denies ear pain, Denies facial pain, Denies headache(s), Denies hearing loss, Denies hoarseness, Denies lip swelling, Denies nosebleed, Denies mouth lesions, Denies mouth pain, Denies nasal congestion, Denies nasal discharge, Denies nasal obstruction, Denies nasal trauma, Denies neck lump, Denies neck pain, Denies nose pain, Denies pain with swallowing, Denies poor balance, Denies post nasal drip, Denies ringing in the ears, Denies sinus pain, Denies sinus pressure , Denies sore throat, Denies throat swelling, Denies tongue swelling, Denies other Cardiovascular: Reports shortness of breath, Reports shortness of breath with activity, Denies chest pain, Denies chest pain at rest, Denies chest pain with activity, Denies excessive sweating, Denies fainting, Denies fast heart rate, Denies foot swelling, Denies generalized swelling, Denies irregular heart rhythm , Denies leg pain with activity, Denies leg sores, Denies leg swelling, Denies lightheadedness, Denies radiating jaw, neck or arm pain, Denies rapid, pounding , or irregular heartbeat, Denies shortness of breath when lying down, Denies shortness of breath causing sudden awakening, Denies slow heart rate, Denies other Respiratory: Reports change in phlegm color, Reports chest congestion, Reports cough, Reports excessive phlegm production, Reports shortness of breath, Reports shortness of breath with activity, Reports wheezing, Denies coughing up blood, Denies pain on inspiration, Denies pain with cough, Denies snoring, Denies stridor, Denies other Gastrointestinal: Denies abdominal pain, Denies belching, Denies black, tarry stools, Denies bloating, Denies bright, red blood in stools, Denies change in bowel habits, Denies constant urge to pass stool, Denies change in stools, Denies coffee ground vomit, Denies constipation, Denies cramping, Denies difficulty swallowing, Denies excessive passing of gas, Denies feeling full early, Denies heartburn, Denies incontinent of stools, Denies loose stools, Denies nausea, Denies pain with swallowing, Denies vomiting, Denies vomiting blood, Denies other Musculoskeletal: Reports back pain, Reports joint pain Neurologic: Denies abnormal hearing, Denies abnormal movements, Denies abnormal speech, Denies abnormal walking, Denies behavioral changes, Denies burning sensations, Denies confusion, Denies dizziness, Denies fainting, Denies frequent falls, Denies headache(s), Denies lack of coordination, Denies localized weakness, Denies loss of vision, Denies memory loss, Denies numbness, Denies other visual disturbances, Denies radiating pain, Denies restless legs, Denies convulsions, Denies seizure-like activity, Denies sensory deficit, Denies tingling, Denies tingling/numbness/burning sensations, Denies tremor(s), Denies unsteadiness, Denies weakness, Denies other Psychiatric: Reports anxiety Hematologic/Lymphatic: Reports easy bleeding PMFSH - History History Provided By: Patient - Medical History Medical History: Medical History (Last Updated 08/02/18 @ 16:26 by Reji Parkinson MD, PhD) MDD (major depressive disorder) (Chronic) GERD (gastroesophageal reflux disease) (Chronic) Chronic back pain (Chronic) Anemia Anxiety and depression Back pain COPD (chronic obstructive pulmonary disease) History of pneumonia Hx of upper gastrointestinal hemorrhage Hx-TIA (transient ischemic attack) Hyperlipidemia Insomnia Osteoporosis - Surgical History Surgical History: Surgical History (Last Updated 08/02/18 @ 16:17 by Reji Parkinson MD, PhD) History of lumpectomy of left breast Hx of appendectomy Hx of lumbosacral spine surgery Hx of ovarian cystectomy Hx of partial thyroidectomy - Family History Family History: Family History (Last Updated 08/02/18 @ 16:18 by Reji Parkinson MD, PhD) Father Lung cancer Grandparent Myocardial infarct, old Son Rheumatoid arthritis Other COPD (chronic obstructive pulmonary disease) - Tobacco History Tobacco Use In Past 30 Days: No Smoking Status: Current some day smoker Tobacco Type: Cigarettes Packs Per Day: 1 Years Smoked: 42 - Alcohol History How Often Do You Have a Drink Containing Alcohol: Never - Substance Use History Substance History: No History of Abuse - Substance Use Type Marijuana Status: Active Route Used: Inhalation Frequency: 4 x a week Reason for Use: Calm Down, Feels Good - Travel History Recent Travel in the [place] Within the Last 8 Weeks: No Recent Travel Out of the Country Within the Last 8 Weeks: No - Immunization History Tetanus Immunization: <5 Years Medications and Allergies Active Medications: Active Medications Sodium Chloride (Ns Flush) 2 ml IV.FLUSH PRN PRN PRN Reason: FLUSH AFTER USING IV ACCESS Allergies Allergy/AdvReac Type Severity Reaction Status Date / Time alendronate sodium Allergy Severe vomiting Verified 05/15/17 14:28 codeine Allergy Severe ITCHING Unverified 05/15/17 14:28 latex Allergy Severe CAUSES HER Unverified 05/15/17 14:28 TO BREAK OUT promethazine Allergy Severe Verified 05/15/17 14:28 umeclidinium Allergy Severe rash Verified 05/15/17 14:28 clopidogrel AdvReac Unknown Unverified 05/15/17 14:28 Home Medications Medication Instructions Recorded Confirmed Type albuterol sulfate 1.25 mg INHALATION QID PRN 08/02/18 08/02/18 History albuterol sulfate 2 puff INHALATION Q4-6H PRN 08/02/18 08/02/18 History amitriptyline 25 mg PO DAILY 08/02/18 08/02/18 History atorvastatin 40 mg PO DAILY 08/02/18 08/02/18 History iklloqxchu-wahwcuwrbfvlk-crup 1 cap PO Q4H PRN 08/02/18 08/02/18 History [Fioricet] clonazepam 1 mg PO HS 08/02/18 08/02/18 History dicyclomine 10 mg PO BID 08/02/18 08/02/18 History duloxetine 30 mg PO DAILY 08/02/18 08/02/18 History stbuceltzff-hctjjybxe-gsrtpqhg 1 inh INHALATION DAILY 08/02/18 08/02/18 History [Trelegy Ellipta] hydrocodone-acetaminophen 1 tab PO Q6H PRN 08/02/18 08/02/18 History oxybutynin chloride 5 mg PO BID 08/02/18 08/02/18 History pantoprazole 40 mg PO BID 08/02/18 08/02/18 History prednisone 10 mg PO DAILY 08/02/18 08/02/18 History ranitidine HCl 300 mg PO DAILY 08/02/18 08/02/18 History tizanidine 4 mg PO TID PRN 08/02/18 08/02/18 History varenicline [Chantix Starting See Label Instructions .ROUTE 08/02/18 08/02/18 History Month Box] .COMPLEX zoledronic nzco-ofaanmfj-levkx See Label Instructions .ROUTE 08/02/18 08/02/18 History [Reclast] .COMPLEX Exam Vital signs: Vital Signs 08/02/18 13:19 08/02/18 13:25 08/02/18 13:39 Temperature 100.0 F H Pulse Rate 80 123 H 104 H Respiratory Rate 22 24 Blood Pressure 136/71 Pulse Oximetry 99 88 L 08/02/18 13:54 08/02/18 14:19 08/02/18 15:29 Temperature Pulse Rate 116 H 114 H 80 Respiratory Rate 24 22 18 Blood Pressure 90/58 L Pulse Oximetry Intake & Output 08/01/18 08/02/18 08/02/18 18:59 06:59 18:59 Intake Total 1000 / 1000 Balance 1000 / 1000 Weight 51.71 kg Intake: IV 1000 / 1000 NS Inj 1,000 ML @ 2000 mls/hr 1000 / 1000 IV.SIG Q30M [facility] Rx#:[id number] Narrative: GENERAL: sleeping, arouses to voice. a/o. Cooperative. SKIN: Warm and dry. few areas of purpura on forearms HEAD: Atraumatic. Normocephalic. EYES: Pupils equal and round. No scleral icterus. No injection or drainage. ENT: No nasal bleeding or discharge. Mucous membranes pink and moist. NECK: Trachea midline. No JVD. CARDIOVASCULAR: Regular rate and rhythm. rate in 90s on my exam RESPIRATORY: No accessory muscle use. poor to fair air movement with bilat wheezes, few rhonchi on right. GASTROINTESTINAL: Abdomen soft, non-tender, nondistended. Hepatic and splenic margins not palpable. BS wnl MUSCULOSKELETAL: Extremities without clubbing, cyanosis, or edema. No obvious deformities. NEUROLOGICAL: Awake and alert. No obvious cranial nerve deficits. Motor grossly within normal limits. Five out of 5 muscle strength in the arms and legs. Normal speech. PSYCHIATRIC: Appropriate mood and affect; insight and judgment normal. Results - Labs CBC & Chem 7: 08/02/18 13:40 08/02/18 13:40 Labs: Laboratory Results - last 24 hr 08/02/18 08/02/18 08/02/18 13:40 13:40 13:40 CBC w Diff Auto diff final WBC 7.0 RBC 4.92 Hgb 13.5 Hct 41.7 MCV 84.7 MCH 27.4 MCHC 32.4 RDW 14.3 Plt Count 252 MPV 7.6 Neut % (Auto) 89.1 H Lymph % (Auto) 3.4 L [place] % (Auto) 7.2 Eos % (Auto) 0.1 Baso % (Auto) 0.2 Neut # (Auto) 6.3 Lymph # (Auto) 0.2 L [place] # (Auto) 0.5 Eos # (Auto) 0.0 Baso # (Auto) 0.0 WBC Differential . Differential Comment . D-Dimer Quant (PE/DVT) Sodium 138 Potassium 4.0 Chloride 104 Carbon Dioxide 27.5 Anion Gap 7 BUN 9 Creatinine 0.79 Estimated GFR 73 L Random Glucose 175 H Lactic Acid 3.2 H Calcium 8.1 L Total Bilirubin 0.3 AST 23 ALT 23 Alkaline Phosphatase 63 Troponin I Less than 0.02 L B-Natriuretic Peptide Total Protein 6.5 Albumin 3.4 Ur Collection Type Urine Color Urine Clarity Urine pH Ur Specific [place] Urine Protein Urine Glucose (UA) Urine Ketones Urine Occult Blood Urine Nitrate Urine Bilirubin Urine Urobilinogen Ur Leukocyte Esterase Urine WBC Ur Squamous Epith Cells Micro UA Comment Ur Microscopic Review Urine Culture Comments 08/02/18 08/02/18 08/02/18 13:40 13:40 14:41 CBC w Diff WBC RBC Hgb Hct MCV MCH MCHC RDW Plt Count MPV Neut % (Auto) Lymph % (Auto) [place] % (Auto) Eos % (Auto) Baso % (Auto) Neut # (Auto) Lymph # (Auto) [place] # (Auto) Eos # (Auto) Baso # (Auto) WBC Differential Differential Comment D-Dimer Quant (PE/DVT) 0.44 Sodium Potassium Chloride Carbon Dioxide Anion Gap BUN Creatinine Estimated GFR Random Glucose Lactic Acid Calcium Total Bilirubin AST ALT Alkaline Phosphatase Troponin I B-Natriuretic Peptide 88 Total Protein Albumin Ur Collection Type Clean catch Urine Color Yellow Urine Clarity Clear Urine pH 6.5 Ur Specific [place] Less/equal 1.005 Urine Protein Negative Urine Glucose (UA) 500 H Urine Ketones Negative Urine Occult Blood Negative Urine Nitrate Negative Urine Bilirubin Negative Urine Urobilinogen 0.2 Ur Leukocyte Esterase Negative Urine WBC 0-5 Ur Squamous Epith Cells 0-5 Micro UA Comment Culture not ind Ur Microscopic Review Microscopic reviewed Urine Culture Comments Culture not ind - Imaging Impressions Chest X-Ray 08/02/18 13:17 CONCLUSION: Emphysema. No acute findings. Caprini VTE Risk Assessment Caprini VTE Risk Assessment: Moderate/High Risk (score >= 2) Caprini Risk Assessment Model: Point Value = 1 Point Value = 2 Point Value = 3 Point Value = 5 Age 41-60 Minor surgery BMI > 25 kg/m2 Swollen legs Varicose veins or History of unexplained or recurrent spontaneous Oral contraceptives or hormone replacement Sepsis (< 1 month) Serious lung disease, including pneumonia (< 1 month) Abnormal pulmonary function Acute myocardial infarction Congestive heart failure (< 1 month) History of inflammatory bowel disease Medical patient at bed rest Age 61-74 Arthroscopic surgery Major open surgery (> 45 min) Laparoscopic surgery (> 45 min) Malignancy Confined to bed (> 72 hours) Immobilizing plaster cast Central venous access Age >= 75 History of VTE Family history of VTE Factor V Leiden Prothrombin [id number] Lupus anticoagulant Anticardiolipin antibodies Elevated serum homocysteine Heparin-induced thrombocytopenia Other congenital or acquired thrombophilia Stroke (< 1 month) Elective arthroplasty Hip, pelvis, or leg fracture Acute spinal cord injury (< 1 month) Prophylaxis Regimen: Total Risk Factor Score Risk Level Prophylaxis Regimen 0-1 Low Early ambulation 2 Moderate Order ONE of the following: *Sequential Compression Device (SCD) *Heparin 5000 units SQ BID 3-4 Higher Order ONE of the following medications: *Heparin 5000 units SQ TID *Enoxaparin/Lovenox 40 mg SQ daily (WT < 150 kg, CrCl > 30 mL/min) *Enoxaparin/Lovenox 30 mg SQ daily (WT < 150 kg, CrCl > 10-29 mL/min) *Enoxaparin/Lovenox 30 mg SQ BID (WT < 150 kg, CrCl > 30 mL/min) AND/OR *Sequential Compression Device (SCD) 5 or more Highest Order ONE of the following medications: *Heparin 5000 units SQ TID (Preferred with Epidurals) *Enoxaparin/Lovenox 40 mg SQ daily (WT < 150 kg, CrCl > 30 mL/min) *Enoxaparin/Lovenox 30 mg SQ daily (WT < 150 kg, CrCl > 10-29 mL/min) *Enoxaparin/Lovenox 30 mg SQ BID (WT < 150 kg, CrCl > 30 mL/min) AND *Sequential Compression Device (SCD) Assessment and Plan - Assessment (1) Acute exacerbation of chronic obstructive pulmonary disease (COPD) Code(s): J44.1 - Chronic obstructive pulmonary disease with (acute) exacerbation Status: Acute Plan: continue supplemental oxygen, steroids, Nebs, Abx. Encouraged her to stop smoking. Will provide ivf as well. (2) Hypoxia Code(s): R09.02 - Hypoxemia Status: Acute Plan: as above. This is new requirement and she has severe COPD with FEV1 <50% (3) Influenza A Code(s): J10.1 - Influenza due to other identified influenza virus with other respiratory manifestations Status: Acute (4) Chronic back pain Code(s): M54.9 - Dorsalgia, unspecified; G89.29 - Other chronic pain Status: Chronic Plan: continue outpt meds (5) GERD (gastroesophageal reflux disease) Code(s): K21.9 - Gastro-esophageal reflux disease without esophagitis Status: Chronic Plan: continue outpt meds (6) MDD (major depressive disorder) Code(s): F32.9 - Major depressive disorder, single episode, unspecified Status : Chronic Plan: continue current meds - Plan Code Status: full Discussed Condition With: Pt, her nurse and ER provider (4) Chronic back pain Qualifiers: Back pain location: low back pain (6) MDD (major depressive disorder) Qualifiers: Major depression recurrence: recurrent Active/Remission status: in partial remission Qualified Code(s): F33.41 - Major depressive disorder, recurrent, in partial remission
[2018-08-02] MEDS ORDERED: Sod Chloride 0.9% Inj 1,000 ML IV.CONT SCH (20:00)
[2018-08-02] MEDS: MethylPREDNISolone Sod Succinate Inj 40 MG/ML Vial IV.PUSH SCH (21:04)
[2018-08-02] MEDS: clonazePAM 1 MG Tablet PO SCH (21:09)
[2018-08-02] MEDS: Dicyclomine 10 MG Capsule PO SCH (21:09)
[2018-08-02] MEDS: Oseltamivir Phosphate 75 MG Capsule PO SCH (21:09)
[2018-08-02] MEDS: guaiFENesin/Dextromethorphan 200 MG/20 MG 10 ML UDC PO PRN (21:11)
[2018-08-03] MEDS: MethylPREDNISolone Sod Succinate Inj 40 MG/ML Vial IV.PUSH SCH ×3 (05:23→21:30)
--- NOTE | 2018-08-03 07:21 | P.PN ---
Subjective Interval history: Sleep somewhat fragmented due to IV. She has been up urinating several times she reports. Cough is improving but still nonproductive. She believes her air movement is better as well. Still quite dyspneic with exertion. Physical Exam Vital signs: Vital Signs 08/02/18 13:19 08/02/18 13:25 08/02/18 13:39 Temperature 100.0 F H Pulse Rate 80 123 H 104 H Respiratory Rate 22 24 Blood Pressure 136/71 Pulse Oximetry 99 88 L 08/02/18 13:54 08/02/18 14:19 08/02/18 15:29 Temperature Pulse Rate 116 H 114 H 80 Respiratory Rate 24 22 18 Blood Pressure 90/58 L Pulse Oximetry 08/02/18 16:00 08/02/18 16:50 08/02/18 17:28 Temperature 98.9 F Pulse Rate 104 H Respiratory Rate 22 Blood Pressure 109/52 L Pulse Oximetry 96 96 96 08/02/18 20:00 08/02/18 21:22 08/02/18 21:23 Temperature 96.7 F L Pulse Rate 96 H 79 Respiratory Rate 16 18 Blood Pressure 105/52 L Pulse Oximetry 95 94 L 08/03/18 00:00 08/03/18 03:12 Temperature 97.3 F L Pulse Rate 88 100 H Respiratory Rate 16 25 H Blood Pressure 107/65 Pulse Oximetry 96 Intake & Output 08/02/18 08/03/18 08/03/18 18:59 06:59 18:59 Intake Total 2650 / 2650 480 / 480 Balance 2650 / 2650 480 / 480 Weight 51.71 kg 54 kg Intake: IV 2350 / 2350 Azithromycin Inj 500 MG In NS 250 / 250 Inj 250 ML @ 250 mls/hr IV.SIG ONCE ONE Rx#:[id number] NS Inj 1,000 ML @ 2000 mls/hr 1999 / 1999 IV.SIG Q30M [facility] Rx#:[id number] Rocephin Inj 1,000 MG In NS Inj 100 / 100 100 ML @ 200 mls/hr IV.SIG ONCE ONE Rx#:[id number] Oral 300 / 300 Oral Supplement 480 / 480 Other: # Voids 1 2 Weight On Admission 51.71 kg Narrative: GENERAL: sleeping, arouses to voice. a/o. Cooperative with exam. SKIN: Warm and dry. few areas of purpura on forearms HEAD: Atraumatic. Normocephalic. EYES: Pupils equal and round. No scleral icterus. No injection or drainage. ENT: No nasal bleeding or discharge. Mucous membranes pink and moist. NECK: Trachea midline. No JVD. CARDIOVASCULAR: Regular rate and rhythm. No significant murmur appreciated. RESPIRATORY: No accessory muscle use. fair air movement with bilat wheezes, few rhonchi at bilateral bases. GASTROINTESTINAL: Abdomen soft, non-tender, nondistended. Hepatic and splenic margins not palpable. BS wnl MUSCULOSKELETAL: Extremities without clubbing, cyanosis, or edema. No obvious deformities. NEUROLOGICAL: Awake and alert. No obvious cranial nerve deficits. Motor grossly within normal limits. Five out of 5 muscle strength in the arms and legs. Normal speech. PSYCHIATRIC: Appropriate mood and affect; insight and judgment normal. Results - Labs CBC & Chem 7: 08/02/18 13:40 08/02/18 13:40 Laboratory Results - last 24 hr 08/02/18 08/02/18 08/02/18 13:40 13:40 13:40 CBC w Diff Auto diff final WBC 7.0 RBC 4.92 Hgb 13.5 Hct 41.7 MCV 84.7 MCH 27.4 MCHC 32.4 RDW 14.3 Plt Count 252 MPV 7.6 Neut % (Auto) 89.1 H Lymph % (Auto) 3.4 L [place] % (Auto) 7.2 Eos % (Auto) 0.1 Baso % (Auto) 0.2 Neut # (Auto) 6.3 Lymph # (Auto) 0.2 L [place] # (Auto) 0.5 Eos # (Auto) 0.0 Baso # (Auto) 0.0 WBC Differential . Differential Comment . D-Dimer Quant (PE/DVT) Sodium 138 Potassium 4.0 Chloride 104 Carbon Dioxide 27.5 Anion Gap 7 BUN 9 Creatinine 0.79 Estimated GFR 73 L Random Glucose 175 H Lactic Acid 3.2 H Calcium 8.1 L Total Bilirubin 0.3 AST 23 ALT 23 Alkaline Phosphatase 63 Troponin I Less than 0.02 L B-Natriuretic Peptide Total Protein 6.5 Albumin 3.4 Ur Collection Type Urine Color Urine Clarity Urine pH Ur Specific [place] Urine Protein Urine Glucose (UA) Urine Ketones Urine Occult Blood Urine Nitrate Urine Bilirubin Urine Urobilinogen Ur Leukocyte Esterase Urine WBC Ur Squamous Epith Cells Micro UA Comment Ur Microscopic Review Urine Culture Comments 08/02/18 08/02/18 08/02/18 13:40 13:40 14:41 CBC w Diff WBC RBC Hgb Hct MCV MCH MCHC RDW Plt Count MPV Neut % (Auto) Lymph % (Auto) [place] % (Auto) Eos % (Auto) Baso % (Auto) Neut # (Auto) Lymph # (Auto) [place] # (Auto) Eos # (Auto) Baso # (Auto) WBC Differential Differential Comment D-Dimer Quant (PE/DVT) 0.44 Sodium Potassium Chloride Carbon Dioxide Anion Gap BUN Creatinine Estimated GFR Random Glucose Lactic Acid Calcium Total Bilirubin AST ALT Alkaline Phosphatase Troponin I B-Natriuretic Peptide 88 Total Protein Albumin Ur Collection Type Clean catch Urine Color Yellow Urine Clarity Clear Urine pH 6.5 Ur Specific [place] Less/equal 1.005 Urine Protein Negative Urine Glucose (UA) 500 H Urine Ketones Negative Urine Occult Blood Negative Urine Nitrate Negative Urine Bilirubin Negative Urine Urobilinogen 0.2 Ur Leukocyte Esterase Negative Urine WBC 0-5 Ur Squamous Epith Cells 0-5 Micro UA Comment Culture not ind Ur Microscopic Review Microscopic reviewed Urine Culture Comments Culture not ind 08/02/18 16:15 CBC w Diff WBC RBC Hgb Hct MCV MCH MCHC RDW Plt Count MPV Neut % (Auto) Lymph % (Auto) [place] % (Auto) Eos % (Auto) Baso % (Auto) Neut # (Auto) Lymph # (Auto) [place] # (Auto) Eos # (Auto) Baso # (Auto) WBC Differential Differential Comment D-Dimer Quant (PE/DVT) Sodium Potassium Chloride Carbon Dioxide Anion Gap BUN Creatinine Estimated GFR Random Glucose Lactic Acid 2.5 H Calcium Total Bilirubin AST ALT Alkaline Phosphatase Troponin I B-Natriuretic Peptide Total Protein Albumin Ur Collection Type Urine Color Urine Clarity Urine pH Ur Specific [place] Urine Protein Urine Glucose (UA) Urine Ketones Urine Occult Blood Urine Nitrate Urine Bilirubin Urine Urobilinogen Ur Leukocyte Esterase Urine WBC Ur Squamous Epith Cells Micro UA Comment Ur Microscopic Review Urine Culture Comments Microbiology 08/02/18 14:05 Nasal Wash Influenza Types A,B Antigen - Final Positive for Flu A Antigen - Imaging Impressions Chest X-Ray 08/02/18 13:17 CONCLUSION: Emphysema. No acute findings. Assessment and Plan - Assessment (1) Acute exacerbation of chronic obstructive pulmonary disease (COPD) Code(s): J44.1 - Chronic obstructive pulmonary disease with (acute) exacerbation Status: Acute Plan: Clinically slowly improving. Continue supplemental oxygen, steroids, Nebs, Abx. Encouraged her to stop smoking. Will stop IV fluids after current bag infused. (2) Hypoxia Code(s): R09.02 - Hypoxemia Status: Acute Plan: as above. This is new requirement for supplemental oxygen and she has severe COPD with FEV1 <50% (3) Influenza A Code(s): J10.1 - Influenza due to other identified influenza virus with other respiratory manifestations Status: Acute Plan: Continue Tamiflu. (4) Chronic back pain Code(s): M54.9 - Dorsalgia, unspecified; G89.29 - Other chronic pain Status: Chronic Plan: continue outpt meds (5) GERD (gastroesophageal reflux disease) Code(s): K21.9 - Gastro-esophageal reflux disease without esophagitis Status: Chronic Plan: continue outpt meds (6) MDD (major depressive disorder) Code(s): F32.9 - Major depressive disorder, single episode, unspecified Status : Chronic Plan: continue current meds (4) Chronic back pain Qualifiers: Back pain location: low back pain (6) MDD (major depressive disorder) Qualifiers: Major depression recurrence: recurrent Active/Remission status: in partial remission Qualified Code(s): F33.41 - Major depressive disorder, recurrent, in partial remission
--- NOTE | 2018-08-03 08:57 | XR ---
EXAM DATE: 08/03/2018 8:40 AM EST AGE/SEX: 68 years / Female INDICATIONS: Patient presents with increased shortness of breath. CLINICAL DATA: This is the patient's subsequent encounter. Patient reports that signs and symptoms h ave been present for 4 - 6 days and indicates a pain score of 7/10. MEDICAL/SURGICAL HISTORY: . Emphysema. Chronic obstructive pulmonary disease. Anemia None. COMPARISON: [facility]PO, CHEST 2V PA&LAT, 08/02/2018. . FINDINGS: There are some mild hyperinflation with crowding of bronchovascular markings in both lung bases. Mild interstitial prominence is evident. There is no pneumothorax or significant pleural effusion. Li near bibasilar parenchymal changes are noted worse on the left. Cardiac silhouette is appropriate The portion of the bony skeleton visualized is unremarkable. CONCLUSION: Mild interstitial prominence with minimal bibasilar parenchymal changes. Moderate emphysematous capellan es in both apices. The amount of bibasilar parenchymal changes have progressed. Electronically signed by: Marcus Baird MD Board Certified Radiologist 08/03/2018 8:56 AM EST
[2018-08-03] MEDS: Oseltamivir Phosphate 75 MG Capsule PO SCH ×2 (09:00→21:30)
[2018-08-03] MEDS ORDERED: Amitriptyline 25 MG Tablet PO SCH (09:00)
[2018-08-03] MEDS: Famotidine 20 MG Tablet PO SCH (09:00)
[2018-08-03] MEDS: Dicyclomine 10 MG Capsule PO SCH ×2 (09:00→21:31)
[2018-08-03] MEDS: RESP: Acetylcysteine 10% 4 ML Neb NEB SCH ×3 (09:57→21:05)
--- NOTE | 2018-08-03 15:29 | ECG ---
Date Performed: 08/02/2018 Time Performed: 13:13:03 PTAGE: 68 years EKG: SINUS TACHYCARDIA MODERATE ST DEPRESSION ABNORMAL ECG Since PREVIOUS TRACING , no significant change noted PREVIOUS TRACIN08/17/2016 13.23 DOCTOR: Sunny Muñiz Interpretating Date/Time 08/03/2018 15:27:08
[2018-08-03] MEDS: Azithromycin Inj 500 MG in Sodium Chlor 0.9% Inj 250 ML IV.SIG SCH (16:29)
[2018-08-03 17:10] LABS: Hemoglobin A1c 6.8 % (4.3-6.0)
[2018-08-03] MEDS: clonazePAM 1 MG Tablet PO SCH (21:30)
[2018-08-04] MEDS: RESP: Acetylcysteine 10% 4 ML Neb NEB SCH (03:05)
[2018-08-04] MEDS: guaiFENesin/Dextromethorphan 200 MG/20 MG 10 ML UDC PO PRN ×2 (03:33→21:30)
[2018-08-04] MEDS: MethylPREDNISolone Sod Succinate Inj 40 MG/ML Vial IV.PUSH SCH ×3 (05:52→21:30)
--- NOTE | 2018-08-04 06:34 | P.PN ---
Subjective Interval history: Reportedly slept better last night. Overall feels that she is doing better but still has significant cough at times which is painful to her ribs. She is ambulating to the restroom and back several times per day but is not sitting up in the chair much during the day. She cannot tolerate the Mucomyst due to the odor of the medication. Physical Exam Vital signs: Vital Signs 08/03/18 08:00 08/03/18 10:15 08/03/18 12:00 Temperature 97.4 F L 97 F L Pulse Rate 102 H 86 83 Respiratory Rate 20 17 20 Blood Pressure 152/69 H 95/60 L Pulse Oximetry 97 96 97 08/03/18 15:21 08/03/18 16:00 08/03/18 20:00 Temperature 96.5 F L 98 F Pulse Rate 66 73 82 Respiratory Rate 17 20 20 Blood Pressure 131/68 132/60 Pulse Oximetry 100 96 08/03/18 21:06 08/04/18 00:00 08/04/18 03:05 Temperature 97.8 F Pulse Rate 73 75 85 Respiratory Rate 20 18 18 Blood Pressure 90/50 L Pulse Oximetry 97 97 95 08/04/18 04:00 Temperature 96.8 F L Pulse Rate 81 Respiratory Rate 20 Blood Pressure 116/54 L Pulse Oximetry 95 Intake & Output 08/03/18 08/03/18 08/04/18 06:59 18:59 06:59 Intake Total 480 / 480 1750 / 1750 480 / 480 Balance 480 / 480 1750 / 1750 480 / 480 Weight 54 kg 53.5 kg Intake: IV 1350 / 1350 NS Inj 1,000 ML @ 100 mls/hr IV 1000 / 1000 .CONT .Q10H [facility] Rx#:[id number] Azithromycin Inj 500 MG In NS 250 / 250 Inj 250 ML @ 250 mls/hr IV.SIG Q24H [facility] Rx#:[id number] Rocephin Inj 1,000 MG In NS Inj 100 / 100 100 ML @ 200 mls/hr IV.SIG Q24H [facility] Rx#:[id number] Oral 400 / 400 480 / 480 Oral Supplement 480 / 480 Other: # Voids 2 2 3 Date of Last Bowel Movement 08/03/18 # Bowel Movements 2 1 Narrative: GENERAL: sleeping, arouses to voice. a/o. Cooperative with exam. Appears a bit more interactive today. SKIN: Warm and dry. few areas of purpura on forearms HEAD: Atraumatic. Normocephalic. EYES: Pupils equal and round. No scleral icterus. No injection or drainage. ENT: No nasal bleeding or discharge. Mucous membranes pink and moist. NECK: Trachea midline. No JVD. CARDIOVASCULAR: Regular rate and rhythm. No significant murmur appreciated. RESPIRATORY: No accessory muscle use. fair to good air movement with few scattered wheezes. Decreased rhonchi. GASTROINTESTINAL: Abdomen soft, non-tender, nondistended. Hepatic and splenic margins not palpable. BS wnl MUSCULOSKELETAL: Extremities without clubbing, cyanosis, or edema. No obvious deformities. KENYA hose in place bilateral lower extremities. NEUROLOGICAL: Awake and alert. No obvious cranial nerve deficits. Motor grossly within normal limits. Five out of 5 muscle strength in the arms and legs. Normal speech. PSYCHIATRIC: Appropriate mood and affect; insight and judgment normal. Results - Labs CBC & Chem 7: 08/02/18 13:40 08/02/18 13:40 Laboratory Results - last 24 hr 08/02/18 08/03/18 08/03/18 13:40 07:40 11:45 POC Glucose 113 116 Hemoglobin A1c 6.8 H 08/03/18 08/03/18 17:43 21:38 POC Glucose 260 110 Hemoglobin A1c Microbiology 08/02/18 14:48 Blood - Peripheral Aerobic Blood Culture - Preliminary No growth in 1 day 08/02/18 14:48 Blood - Peripheral Anaerobic Blood Culture - Preliminary No growth in 1 day 08/02/18 14:45 Blood - Peripheral Aerobic Blood Culture - Preliminary No growth in 1 day 08/02/18 14:45 Blood - Peripheral Anaerobic Blood Culture - Preliminary No growth in 1 day - Imaging Impressions Chest X-Ray 08/03/18 00:00 CONCLUSION: Mild interstitial prominence with minimal bibasilar parenchymal changes. Moderate emphysematous changes in both apices. The amount of bibasilar parenchymal changes have progressed. Assessment and Plan - Assessment (1) Acute exacerbation of chronic obstructive pulmonary disease (COPD) Code(s): J44.1 - Chronic obstructive pulmonary disease with (acute) exacerbation Status: Acute Plan: Clinically improving. Continue supplemental oxygen, steroids, Nebs, Abx. Encouraged her to stop smoking. Discharge home tomorrow if condition continues to improve (2) Hypoxia Code(s): R09.02 - Hypoxemia Status: Acute Plan: as above. This is new requirement for supplemental oxygen and she has severe COPD with FEV1 <50% (3) Influenza A Code(s): J10.1 - Influenza due to other identified influenza virus with other respiratory manifestations Status: Acute Plan: Continue Tamiflu. (4) Chronic back pain Code(s): M54.9 - Dorsalgia, unspecified; G89.29 - Other chronic pain Status: Chronic Plan: continue outpt meds (5) GERD (gastroesophageal reflux disease) Code(s): K21.9 - Gastro-esophageal reflux disease without esophagitis Status: Chronic Plan: continue outpt meds (6) MDD (major depressive disorder) Code(s): F32.9 - Major depressive disorder, single episode, unspecified Status : Chronic Plan: continue current meds - Plan Hopefully discharge home tomorrow. Code Status: full (4) Chronic back pain Qualifiers: Back pain location: low back pain (6) MDD (major depressive disorder) Qualifiers: Major depression recurrence: recurrent Active/Remission status: in partial remission Qualified Code(s): F33.41 - Major depressive disorder, recurrent, in partial remission
[2018-08-04] MEDS: Dicyclomine 10 MG Capsule PO SCH ×2 (08:27→21:30)
[2018-08-04] MEDS: Famotidine 20 MG Tablet PO SCH (08:27)
[2018-08-04] MEDS: Oseltamivir Phosphate 75 MG Capsule PO SCH ×2 (08:28→21:30)
[2018-08-04] MEDS: Enoxaparin Inj 30 MG/0.3 ML Syringe SQ SCH (08:30)
[2018-08-04] MEDS: Azithromycin Inj 500 MG in Sodium Chlor 0.9% Inj 250 ML IV.SIG SCH (14:18)
[2018-08-04] MEDS: Amitriptyline 25 MG Tablet PO SCH (21:31)
[2018-08-04] MEDS: clonazePAM 1 MG Tablet PO SCH (21:40)
[2018-08-05] MEDS: MethylPREDNISolone Sod Succinate Inj 40 MG/ML Vial IV.PUSH SCH ×3 (06:15→20:45)
--- NOTE | 2018-08-05 06:20 | P.PN ---
Subjective Interval history: Feels better this morning but had increased shortness of breath and fatigue last night as she was off supplemental oxygen for several hours. She reports that her saturation fell to 85% when she walked to the bathroom and back last night without supplemental oxygen. This is confirmed with respiratory therapist , Ramírez Dunlap. She will need home supplemental oxygen. Physical Exam Vital signs: Vital Signs 08/04/18 08:00 08/04/18 08:27 08/04/18 10:15 Temperature 97.2 F L Pulse Rate 62 106 H Respiratory Rate 20 7 L 18 Blood Pressure 133/72 Pulse Oximetry 95 95 Pulse Oximetry [Exertion on Room Air] Pulse Oximetry [Resting on Room Air] 08/04/18 12:00 08/04/18 15:19 08/04/18 15:37 Temperature 97.9 F Pulse Rate 98 H 86 Respiratory Rate 21 20 Blood Pressure 126/58 L Pulse Oximetry 95 Pulse Oximetry [Exertion on Room Air] 90 L Pulse Oximetry [Resting on Room Air] 93 L 08/04/18 16:00 08/04/18 20:00 08/04/18 20:10 Temperature 97.0 F L 96.9 F L Pulse Rate 98 H 80 85 Respiratory Rate 20 16 15 Blood Pressure 150/70 H 142/62 H Pulse Oximetry 95 93 L Pulse Oximetry [Exertion on Room Air] Pulse Oximetry [Resting on Room Air] 08/05/18 00:00 Temperature 97.0 F L Pulse Rate 86 Respiratory Rate 16 Blood Pressure 146/88 H Pulse Oximetry 95 Pulse Oximetry [Exertion on Room Air] Pulse Oximetry [Resting on Room Air] Intake & Output 08/04/18 08/04/18 08/05/18 06:59 18:59 06:59 Intake Total 480 / 480 1070 / 1070 200 / 200 Output Total 600 / 600 Balance 480 / 480 470 / 470 200 / 200 Weight 53.5 kg 53.5 kg Intake: IV 350 / 350 Azithromycin Inj 500 MG In NS 250 / 250 Inj 250 ML @ 250 mls/hr IV.SIG Q24H [facility] Rx#:[id number] Rocephin Inj 1,000 MG In NS Inj 100 / 100 100 ML @ 200 mls/hr IV.SIG Q24H [facility] Rx#:[id number] Oral 480 / 480 720 / 720 Oral Supplement 200 / 200 Output: Urine 600 / 600 Other: # Voids 3 2 Date of Last Bowel Movement 08/03/18 # Bowel Movements 1 Narrative: GENERAL: sleeping, arouses to voice. a/o. Cooperative with exam. SKIN: Warm and dry. few areas of purpura on forearms HEAD: Atraumatic. Normocephalic. EYES: Pupils equal and round. No scleral icterus. No injection or drainage. ENT: No nasal bleeding or discharge. Mucous membranes pink and moist. NECK: Trachea midline. No JVD. CARDIOVASCULAR: Regular rate and rhythm. No significant murmur appreciated. RESPIRATORY: No accessory muscle use. fair to good air movement with few scattered wheezes. Few rhonchi at right base. GASTROINTESTINAL: Abdomen soft, non-tender, nondistended. Hepatic and splenic margins not palpable. BS wnl MUSCULOSKELETAL: Extremities without clubbing, cyanosis, or edema. No obvious deformities. KENYA hose in place bilateral lower extremities. NEUROLOGICAL: Awake and alert. No obvious cranial nerve deficits. Motor grossly within normal limits. Five out of 5 muscle strength in the arms and legs. Normal speech. PSYCHIATRIC: Appropriate mood and affect; insight and judgment normal. Results - Labs CBC & Chem 7: 08/02/18 13:40 08/02/18 13:40 Laboratory Results - last 24 hr 08/04/18 08/04/18 07:41 17:09 POC Glucose 124 121 Microbiology 08/02/18 14:48 Blood - Peripheral Aerobic Blood Culture - Preliminary No growth in 2 days 08/02/18 14:48 Blood - Peripheral Anaerobic Blood Culture - Preliminary No growth in 2 days 08/02/18 14:45 Blood - Peripheral Aerobic Blood Culture - Preliminary No growth in 2 days 08/02/18 14:45 Blood - Peripheral Anaerobic Blood Culture - Preliminary No growth in 2 days Assessment and Plan - Assessment (1) Acute exacerbation of chronic obstructive pulmonary disease (COPD) Code(s): J44.1 - Chronic obstructive pulmonary disease with (acute) exacerbation Status: Acute Plan: Clinically improving. Continue supplemental oxygen, steroids, Nebs, Abx. Encouraged her to stop smoking. Discharge home later today when supplemental oxygen at home arranged. (2) Hypoxia Code(s): R09.02 - Hypoxemia Status: Acute Plan: as above. This is new requirement for supplemental oxygen and she has severe COPD with FEV1 <50% (3) Influenza A Code(s): J10.1 - Influenza due to other identified influenza virus with other respiratory manifestations Status: Acute Plan: Continue Tamiflu for total treatment duration of 5 days. (4) Chronic back pain Code(s): M54.9 - Dorsalgia, unspecified; G89.29 - Other chronic pain Status: Chronic Plan: continue outpt meds (5) GERD (gastroesophageal reflux disease) Code(s): K21.9 - Gastro-esophageal reflux disease without esophagitis Status: Chronic Plan: continue outpt meds (6) MDD (major depressive disorder) Code(s): F32.9 - Major depressive disorder, single episode, unspecified Status : Chronic Plan: continue current meds (7) DM2 (diabetes mellitus, type 2) Code(s): E11.9 - Type 2 diabetes mellitus without complications Status: Acute Plan: This is a new diagnosis during this visit and is likely associated with her chronic steroid use. Her A1c is 6.8 and random sugars are generally less than 200. I have discussed this with her at length this morning. Initially we will just treat with dietary control and monitor as an outpatient. She already has some trouble with loose stools at times so we will hold off on adding metformin at this point. She is agreeable with this plan. - Plan Hopefully discharge home later today. (4) Chronic back pain Qualifiers: Back pain location: low back pain (6) MDD (major depressive disorder) Qualifiers: Major depression recurrence: recurrent Active/Remission status: in partial remission Qualified Code(s): F33.41 - Major depressive disorder, recurrent, in partial remission
--- NOTE | 2018-08-05 06:39 | P.DS ---
Date of admission: 08/02/18 14:50 Primary care physician: Reji Parkinson MD, PhD Anticipated date of discharge: 08/05/18 Brief History from admission: Patient is a 68-year-old female with severe COPD, tobacco use, MDD and chronic low back pain well known to me who presents with complaint of worsening cough and shortness of breath with a productive cough over last 2 days. Her baseline RA sat is around 94-96% and she is not currently on chronic supplemental oxygen. She has had chills and subjective fever. Her temp at home this AM was 101 and her sat ranged b/t 76-86% on RA on her home oximeter device. She is on an outpt COPD protocol and yesterday took 40 mg of prednisone with a dose of doxycycline for presumed COPD exacerbation in addition to increasing her breathing treatments. Despite these interventions, she continued to feel worse and thus came to the ER today. No leg swelling nor immobilization. No chest pain. She has had her flu shot this year. Her ER eval is noted for hypoxia with sats in mid to upper 80s on RA. CXR negative for acute infiltrate. Trop, D- dimer, BNP negative. Flu antigen is positive. She gets Flu vaccine annually and received her last shot in Feb 2018. It is noted that she has resumed cigarette use and just started Chantix again in efforts to stop smoking. She has been given supplemental oxygen, steroids, IV Abx, Nebs and has responded relatively well. It is noted that her adult daughter has had similar symptoms the last few days and lives with pt. DS: Diagnosis - Discharge Diagnosis (1) Acute exacerbation of chronic obstructive pulmonary disease (COPD) Status: Acute (2) Hypoxia Status: Acute (3) Influenza A Status: Acute (4) Chronic back pain Status: Chronic (5) GERD (gastroesophageal reflux disease) Status: Chronic (6) MDD (major depressive disorder) Status: Chronic (7) DM2 (diabetes mellitus, type 2) Status: Acute DS: Medications - Discharge Medications Prescriptions: azithromycin [Zithromax] 250 mg PO DAILY #3 tab cefdinir 300 mg PO Q12H #8 cap nicotine 1 patch TRANSDERMAL DAILY #14 ea oseltamivir [Tamiflu] 75 mg PO BID #3 cap prednisone See Taper PO PER PKG DIR #21 each DS: Summary Hospital Course: Patient admitted for COPD exacerbation with hypoxia as noted above. She was placed on antibiotics, steroids, supplemental oxygen. She recovered relatively well albeit slowly. She will be discharged home on supplemental oxygen, antibiotics and steroid taper to return to her regular dose of prednisone at 10 mg a day. Additionally it is noted that patient had some elevated sugars during his stay and her A1c was measured at 6.8 so she does technically meet the diagnosis of type 2 diabetes. I explained this to her and given that she already has loose stools, will hold off on metformin initiation. She will watch diet more closely and will follow as an outpatient. - Time Spent with Patient Total time spent providing and/or coordinating discharge services: Less than 30 minutes - Quality: VTE Deep Vein Thrombosis/Pulmonary Embolism Present on Admission: No Exam Vital signs: Vital Signs 08/04/18 08:00 08/04/18 08:27 08/04/18 10:15 Temperature 97.2 F L Pulse Rate 62 106 H Respiratory Rate 20 7 L 18 Blood Pressure 133/72 Pulse Oximetry 95 95 Pulse Oximetry [Exertion on Room Air] Pulse Oximetry [Resting on Room Air] 08/04/18 12:00 08/04/18 15:19 08/04/18 15:37 Temperature 97.9 F Pulse Rate 98 H 86 Respiratory Rate 21 20 Blood Pressure 126/58 L Pulse Oximetry 95 Pulse Oximetry [Exertion on Room Air] 90 L Pulse Oximetry [Resting on Room Air] 93 L 08/04/18 16:00 08/04/18 20:00 08/04/18 20:10 Temperature 97.0 F L 96.9 F L Pulse Rate 98 H 80 85 Respiratory Rate 20 16 15 Blood Pressure 150/70 H 142/62 H Pulse Oximetry 95 93 L Pulse Oximetry [Exertion on Room Air] Pulse Oximetry [Resting on Room Air] 08/05/18 00:00 Temperature 97.0 F L Pulse Rate 86 Respiratory Rate 16 Blood Pressure 146/88 H Pulse Oximetry 95 Pulse Oximetry [Exertion on Room Air] Pulse Oximetry [Resting on Room Air] Intake & Output 08/04/18 08/04/18 08/05/18 06:59 18:59 06:59 Intake Total 480 / 480 1070 / 1070 200 / 200 Output Total 600 / 600 Balance 480 / 480 470 / 470 200 / 200 Weight 53.5 kg 53.5 kg Intake: IV 350 / 350 Azithromycin Inj 500 MG In NS 250 / 250 Inj 250 ML @ 250 mls/hr IV.SIG Q24H [facility] Rx#:[id number] Rocephin Inj 1,000 MG In NS Inj 100 / 100 100 ML @ 200 mls/hr IV.SIG Q24H [facility] Rx#:[id number] Oral 480 / 480 720 / 720 Oral Supplement 200 / 200 Output: Urine 600 / 600 Other: # Voids 3 2 Date of Last Bowel Movement 08/03/18 # Bowel Movements 1 Results Procedures completed during hospitalization: none Labs on day of discharge: Labs from last 24 hours 08/04/18 08/04/18 17:09 07:41 POC Glucose 121 124 Preliminary micro results at discharge 08/02/18 14:48 Aerobic Blood Culture - Preliminary Blood - Peripheral No growth in 2 days Anaerobic Blood Culture - Preliminary No growth in 2 days 08/02/18 14:45 Aerobic Blood Culture - Preliminary Blood - Peripheral No growth in 2 days Anaerobic Blood Culture - Preliminary No growth in 2 days - Impressions ITS Impressions Chest X-Ray 08/03/18 00:00 CONCLUSION: Mild interstitial prominence with minimal bibasilar parenchymal changes. Moderate emphysematous changes in both apices. The amount of bibasilar parenchymal changes have progressed. Discharge Plan - Discharge Disposition Patient Disposition: Discharge Home - Discharge Condition Condition: Stable - Discharge Order Discharge Orders: Discharge Order (Routine); Ordered 08/05/18 Ordered By: Reji Parkinson - Discharge Details Anticipated Discharge Date: 08/05/18 - Physicians Team Primary Care Provider: Reji Parkinson Attending Provider: Reji Parkinson
[2018-08-05] MEDS: Dicyclomine 10 MG Capsule PO SCH ×2 (08:48→20:41)
[2018-08-05] MEDS: Oseltamivir Phosphate 75 MG Capsule PO SCH ×2 (08:48→20:41)
[2018-08-05] MEDS: Famotidine 20 MG Tablet PO SCH (08:49)
[2018-08-05] MEDS: Enoxaparin Inj 30 MG/0.3 ML Syringe SQ SCH (08:50)
[2018-08-05] MEDS: Azithromycin Inj 500 MG in Sodium Chlor 0.9% Inj 250 ML IV.SIG SCH (14:15)
--- NOTE | 2018-08-05 17:37 | P.PNADD ---
Addendum to Inpatient Note Reason for Addendum: Additional Documentation Additional information: Received a call from charge nurse re: pt's home O2 order. Pt reportedly living in a mobile home/camper and doesn't have sufficient amperage in her residence for a home oxygen concentrator. Pt failed walk test today, but her oxygen sats are above 90 at rest on RA. Will change home O2 order to reflect need for supplemental O2 during exertion which hopefully will allow outside DME supplier to provide O2 tanks for pt in her home.
[2018-08-05] MEDS: clonazePAM 1 MG Tablet PO SCH (20:41)
[2018-08-05] MEDS: Amitriptyline 25 MG Tablet PO SCH (20:41)
[2018-08-05] MEDS: guaiFENesin/Dextromethorphan 200 MG/20 MG 10 ML UDC PO PRN (20:52)
[2018-08-06] MEDS: guaiFENesin/Dextromethorphan 200 MG/20 MG 10 ML UDC PO PRN (03:08)
[2018-08-06 04:03] VITALS: O2SAT 96
[2018-08-06] MEDS: MethylPREDNISolone Sod Succinate Inj 40 MG/ML Vial IV.PUSH SCH (05:11)
--- NOTE | 2018-08-06 08:02 | P.PN ---
Subjective Interval history: Patient remained in hospital overnight primarily to arrange for home oxygen delivery and set up. There is been some question as to if her trailer has adequate amperage to run the home oxygen concentrator but it appears that she might actually have adequate current per her most recent discussion this morning. In either case she will go home today with some form of supplemental oxygen arranged by [facility]. Clinically she is doing better. Physical Exam Vital signs: Vital Signs 08/05/18 08:00 08/05/18 09:19 08/05/18 12:00 Temperature 96 F L 96.6 F L Pulse Rate 70 108 H 94 H Respiratory Rate 20 21 20 Blood Pressure 129/73 117/71 Pulse Oximetry 96 93 L 94 L Pulse Oximetry [Exertion on Room Air] Pulse Oximetry [Exertion with Oxygen] Pulse Oximetry [Resting on Room Air] 08/05/18 14:59 08/05/18 15:00 08/05/18 16:00 Temperature 97.6 F Pulse Rate 101 H 92 H Respiratory Rate 21 20 Blood Pressure 126/60 Pulse Oximetry 96 Pulse Oximetry [Exertion on Room Air] 87 L Pulse Oximetry [Exertion with Oxygen] 95 Pulse Oximetry [Resting on Room Air] 93 L 08/05/18 20:00 08/05/18 20:41 08/05/18 20:42 Temperature 97.2 F L Pulse Rate 77 72 Respiratory Rate 18 18 20 Blood Pressure 152/84 H Pulse Oximetry 94 L 96 Pulse Oximetry [Exertion on Room Air] Pulse Oximetry [Exertion with Oxygen] Pulse Oximetry [Resting on Room Air] 08/06/18 00:00 08/06/18 03:11 08/06/18 04:00 Temperature 98.2 F Pulse Rate 77 89 Respiratory Rate 18 18 18 Blood Pressure 132/75 Pulse Oximetry 94 L 96 Pulse Oximetry [Exertion on Room Air] Pulse Oximetry [Exertion with Oxygen] Pulse Oximetry [Resting on Room Air] Intake & Output 08/05/18 08/06/18 08/06/18 18:59 06:59 18:59 Intake Total 3150 / 3150 845 / 845 Balance 3150 / 3150 845 / 845 Weight 52.2 kg Intake: IV 350 / 350 Azithromycin Inj 500 MG In NS 250 / 250 Inj 250 ML @ 250 mls/hr IV.SIG Q24H [facility] Rx#:[id number] Rocephin Inj 1,000 MG In NS Inj 100 / 100 100 ML @ 200 mls/hr IV.SIG Q24H [facility] Rx#:[id number] Oral 2800 / 2800 845 / 845 Other: # Voids 10 2 Date of Last Bowel Movement 08/03/18 # Bowel Movements 0 1 Narrative: GENERAL: sleeping, arouses to voice. a/o. Cooperative with exam. SKIN: Warm and dry. few areas of purpura on forearms HEAD: Atraumatic. Normocephalic. EYES: Pupils equal and round. No scleral icterus. No injection or drainage. ENT: No nasal bleeding or discharge. Mucous membranes pink and moist. NECK: Trachea midline. No JVD. CARDIOVASCULAR: Regular rate and rhythm. No significant murmur appreciated. RESPIRATORY: No accessory muscle use. good air movement with few scattered wheezes. No rhonchi today. GASTROINTESTINAL: Abdomen soft, non-tender, nondistended. Hepatic and splenic margins not palpable. BS wnl MUSCULOSKELETAL: Extremities without clubbing, cyanosis, or edema. No obvious deformities. KENYA hose in place bilateral lower extremities. NEUROLOGICAL: Awake and alert. No obvious cranial nerve deficits. Motor grossly within normal limits. Five out of 5 muscle strength in the arms and legs. Normal speech. PSYCHIATRIC: Appropriate mood and affect; insight and judgment normal. Results - Labs CBC & Chem 7: 08/02/18 13:40 08/02/18 13:40 Microbiology 08/02/18 14:48 Blood - Peripheral Aerobic Blood Culture - Preliminary No growth in 3 days 08/02/18 14:48 Blood - Peripheral Anaerobic Blood Culture - Preliminary No growth in 3 days 08/02/18 14:45 Blood - Peripheral Aerobic Blood Culture - Preliminary No growth in 3 days 08/02/18 14:45 Blood - Peripheral Anaerobic Blood Culture - Preliminary No growth in 3 days - Procedures none Assessment and Plan - Assessment (1) Acute exacerbation of chronic obstructive pulmonary disease (COPD) Code(s): J44.1 - Chronic obstructive pulmonary disease with (acute) exacerbation Status: Acute Plan: Clinically improving. Continue supplemental oxygen, steroids, Nebs, Abx. Encouraged her to stop smoking. Discharge home later today when supplemental oxygen at home arranged. (2) Hypoxia Code(s): R09.02 - Hypoxemia Status: Acute Plan: as above. This is new requirement for supplemental oxygen and she has severe COPD with FEV1 <50% (3) Influenza A Code(s): J10.1 - Influenza due to other identified influenza virus with other respiratory manifestations Status: Acute Plan: Continue Tamiflu for total treatment duration of 5 days. (4) Chronic back pain Code(s): M54.9 - Dorsalgia, unspecified; G89.29 - Other chronic pain Status: Chronic Plan: continue outpt meds (5) GERD (gastroesophageal reflux disease) Code(s): K21.9 - Gastro-esophageal reflux disease without esophagitis Status: Chronic Plan: continue outpt meds (6) MDD (major depressive disorder) Code(s): F32.9 - Major depressive disorder, single episode, unspecified Status : Chronic Plan: continue current meds (7) DM2 (diabetes mellitus, type 2) Code(s): E11.9 - Type 2 diabetes mellitus without complications Status: Acute Plan: This is a new diagnosis during this visit and is likely associated with her chronic steroid use. Her A1c is 6.8 and random sugars are generally less than 200. I discussed this with her at length on 08/05/2018. Initially we will just treat with dietary control and monitor as an outpatient. She already has some trouble with loose stools at times so we will hold off on adding metformin at this point. She is agreeable with this plan. - Plan Hopefully discharge home later today. (4) Chronic back pain Qualifiers: Back pain location: low back pain (6) MDD (major depressive disorder) Qualifiers: Major depression recurrence: recurrent Active/Remission status: in partial remission Qualified Code(s): F33.41 - Major depressive disorder, recurrent, in partial remission
[2018-08-06] MEDS: Famotidine 20 MG Tablet PO SCH (09:43)
[2018-08-06] MEDS: Enoxaparin Inj 30 MG/0.3 ML Syringe SQ SCH (09:44)
[2018-08-06] MEDS: Dicyclomine 10 MG Capsule PO SCH (09:44)
[2018-08-06] MEDS: Oseltamivir Phosphate 75 MG Capsule PO SCH (09:44)
[2018-08-06 10:00] VITALS: PULSE 87; RESP 20
[2018-08-06 10:03] VITALS: BP 136/79; TEMP 97.2
== END 2018-08-06 12:25 | disposition home or self-care (01) | DRG 192 ==
LOC: PHED 13:04 → PHEDA 14:50 → PH3 15:41
PROVIDERS: ADMIT Family Medicine; ATTEND Family Medicine
CPT/HCPCS: 71010; 71020; 71045; 71046; 80053; 81001; 82948; 82962; 83036; 83520; 83605; 83880; 84484; 85025; 85379; 87040; 87275; 87276; 87804; 90761; 90774; 93005; 94618; 94620; 94640; 94664; 94665; 96361; 96374; 97110; 97116; 97161; 99285; C8952; J0456; J0696; J1650; J2920; J2930; J7030; J7050